=== PATIENT | female | born 1980 | race Caucasian/White ===

== ENCOUNTER 2020-01-31 16:05 | Inpatient (IN) | payer BC, MEDICAID ==
[2020-01-31] MEDS ORDERED: LORazepam 1 MG TAB PO STA (16:40)
[2020-01-31 17:43] LABS: Appearance,Urine Clear (Clear); Bilirubin,Urine Negative (Negative); Blood,Urine Negative (Negative); Color,Urine Yellow; Glucose,Urine (UA) Negative (Negative); Ketones,Urine Negative (Negative); Leukocyte Esterase,Urine Negative (Negative); Nitrite,Urine Negative (Negative); Protein,Urine Negative (Negative); Urobilinogen,Urine <2.0 mg/dL (<2.0)
--- NOTE | 2020-01-31 18:18 | ED ---
Psych HPI - General Source: patient Mode of arrival: ambulatory <Iman Arroyo - Last Filed: 02/01/20 10:08> <Margie Coffey - Last Filed: 02/01/20 12:33> - General Chief Complaint: Psychiatric Symptoms Stated Complaint: Anxiety Time Seen by Provider: 01/31/20 16:25 - History of Present Illness Initial Comments: 39yo female presenting to the ER today for cc of voices in her head. states she has history of this in the past. states began when she was deotoxing from alcohol initially but did not go away. at times she has ringing in her ears but currentyl she hears singing in her ear that is not her voice. Patient states it is driving her crazy and at time she feels suicidal secondary to the voices. Denies homicidal ideations. Denies headaches, visual changes, nausea, vomiting, abdominal or chest pain. Patient staets she has not used alcohol in over a month. Patient tearful but very cooperative during history taking. (Iman Arroyo) - Related Data Home Medications Medication Instructions Recorded Confirmed Multivitamins, Thera [Multivitamin 1 tab PO DAILY 01/31/20 01/31/20 (formulary)] Sertraline HCl [Zoloft] 50 mg PO DAILY 01/31/20 01/31/20 Vitamin C/Biotin [Hair, Skin and 1 tab PO DAILY 01/31/20 01/31/20 Nails] traZODone HCL [Desyrel] 50 mg PO HS 01/31/20 01/31/20 Allergies Allergy/AdvReac Type Severity Reaction Status Date / Time No Known Allergies Allergy Verified 01/31/20 22:13 Review of Systems ROS Other: All systems not noted in ROS Statement are negative. <Iman Arroyo - Last Filed: 02/01/20 10:08> ROS Other: All systems not noted in ROS Statement are negative. <Margie Coffey - Last Filed: 02/01/20 12:33> ROS Statement: Those systems with pertinent positive or pertinent negative responses have been documented in the HPI. Past Medical History Past Medical History: No Reported History History of Any Multi-Drug Resistant Organisms: None Reported Additional Past Surgical History / Comment(s): neck surgery Past Psychological History: Anxiety, Depression Smoking Status: Current every day smoker Past Alcohol Use History: None Reported Past Drug Use History: None Reported <CruzIman Bond - Last Filed: 02/01/20 10:08> General Exam Limitations: no limitations <CruzIman Bond - Last Filed: 02/01/20 10:08> - General Exam Comments Initial Comments: General: The patient is awake and alert, in no distress Eye: + 3 mm pupils are equal, round and reactive to light, extra-ocular movements are intact. No nystagmus. There is normal conjunctiva bilaterally. No signs of icterus. Ears, nose, mouth and throat: There are moist mucous membranes and no oral lesions. Neck: The neck is supple, there is no tenderness or JVD. Cardiovascular: There is a regular rate and rhythm. No murmur, rub or gallop is appreciated. Respiratory: Lungs are clear to auscultation, respirations are non-labored, breath sounds are equal. No wheezes, stridor, rales, or rhonchi. Gastrointestinal: Soft, non-distended, non-tender abdomen without masses or organomegaly noted. There is no rebound or guarding present. Musculoskeletal: Normal ROM, no tenderness. Strength 5/5. Sensation intact. radial pulses equal bilaterally 2+. Neurological: A&O x 3. CN II-XII intact, There are no obvious motor or sensory deficits. Coordination appears grossly intact. Speech is normal. Skin: Skin is warm and dry and no rashes or lesions are noted. Psychiatric: Cooperative, appropriate mood & affect, normal judgment. (Iman Arroyo) Course Vital Signs 01/31/20 16:10 Temperature 97.8 F Pulse Rate 63 Respiratory 18 Rate Blood Pressure 112/71 O2 Sat by Pulse 98 Oximetry Medical Decision Making <Iman Arroyo - Last Filed: 02/01/20 10:08> - Lab Data Result diagrams: 02/01/20 11:08 02/01/20 11:08 <Margie Coffey - Last Filed: 02/01/20 12:33> - Medical Decision Making Discussed case [facility] Dr. Coffey. Pt medically cleared for EPS evaluatin. Patient agreeable to admission as EPS recommended. (Iman Arroyo) I was available for consultation in the emergency department. The history and physical exam were done by the midlevel provider. I was consulted for this patients care. I reviewed the case with the midlevel provider and based on th eir presentation of the patient, I agree with the assessment, medical decision making and plan of care as documented. Chart was dictated using [employer] dictation software. Attempts were made to correct any dictation errors however some typographical errors may persist. Patient was seen during a national state of emergency due to the Covid-19 pandemic. (Margie Coffey) - Lab Data Lab Results 01/31/20 01/31/20 01/31/20 Range/Units 16:25 16:25 16:28 Urine Color Yellow Urine Appearance Clear (Clear) Urine pH 5.0 (5.0-8.0) Ur Specific [place] 1.010 (1.001-1.035) Urine Protein Negative (Negative) Urine Glucose (UA) Negative (Negative) Urine Ketones Negative (Negative) Urine Blood Negative (Negative) Urine Nitrite Negative (Negative) Urine Bilirubin Negative (Negative) Urine Urobilinogen <2.0 (<2.0) mg/dL Ur Leukocyte Esterase Negative (Negative) Urine HCG, Qual Not Detected (Not Detectd) Urine Opiates Screen Not Detected (NotDetected) Ur Oxycodone Screen Not Detected (NotDetected) Urine Methadone Screen Not Detected (NotDetected) Ur Propoxyphene Screen Not Detected (NotDetected) Ur Barbiturates Screen Not Detected (NotDetected) U Tricyclic Antidepress Not Detected (NotDetected) Ur Phencyclidine Scrn Not Detected (NotDetected) Ur Amphetamines Screen Not Detected (NotDetected) U Methamphetamines Scrn Not Detected (NotDetected) U Benzodiazepines Scrn Not Detected (NotDetected) Urine Cocaine Screen Not Detected (NotDetected) U Marijuana (THC) Screen Not Detected (NotDetected) Disposition Is patient prescribed a controlled substance at d/c from ED?: No Time of Disposition: 10:09 - Out of Hospital Transfer - Req. Specs Out of Hospital Transfer - Requested Specifics: Psychiatric Non-ICU <Iman Arroyo - Last Filed: 02/01/20 10:08> <Margie Coffey - Last Filed: 02/01/20 12:33> Clinical Impression: Depression, Auditory hallucination, Tinnitus Disposition: TRANSFER TO PSYCH HOSP/UNIT Condition: Serious
[2020-01-31] MEDS ORDERED: MAG HYDROX/AL HYDROX/SIMETH 30 ML CUP PO PRN (20:03)
[2020-01-31] MEDS ORDERED: MAGNESIUM HYDROXIDE 2,400 MG/10 ML CUP PO PRN (20:03)
[2020-01-31] MEDS ORDERED: ZIPRASIDONE 20 MG VIAL IM PRN (20:03)
[2020-01-31 20:45] LABS: Amphetamine Screen,Urine Not Detected (NotDetected); Barbiturate Screen,Urine Not Detected (NotDetected); Benzodiazepines Screen,Urine Not Detected (NotDetected); Cocaine Screen,Urine Not Detected (NotDetected); Methadone Screen, Urine Not Detected (NotDetected); Opiate Screen,Urine Not Detected (NotDetected); Oxycodone Screen, Urine Not Detected (NotDetected); Phencyclidine Screen,Urine Not Detected (NotDetected); Tricyclic Antidepressant,Urine Not Detected (NotDetected); Urn Cannabinoid Scrn Not Detected (NotDetected)
[2020-01-31] MEDS: traZODone HCL 50 MG TAB PO PRN (21:53)
[2020-02-01] MEDS ORDERED: INFLUENZA VACCINE (6 MOS+) 60 MCG/0.5 ML SYRINGE IM ONE (09:00)
[2020-02-01] MEDS ORDERED: PNEUMOCOCCAL VACC-PNEUMOVAX 23 25 MCG/0.5 ML VIAL IM ONE (09:00)
[2020-02-01 11:47] LABS: ALT 27 U/L (4-34); AST 32 U/L (14-36); African American GFR (CKD) >90 (>60 ml/min/1.73 sqM); Albumin 4.4 g/dL (3.5-5.0); Alkaline Phosphatase 44 U/L (38-126); Anion Gap 4 mmol/L; Blood Urea Nitrogen 14 mg/dL (7-17); Calcium 9.4 mg/dL (8.4-10.2); Carbon Dioxide 27 mmol/L (22-30); Chloride 107 mmol/L (98-107); Cholesterol 160 mg/dL (<200); Glucose 82 mg/dL (74-99); HDL Cholesterol 68 mg/dL (40-60); LDL Cholesterol,Calculated 83 mg/dL (0-99); Non-African American GFR(CKD) >90 (>60 ml/min/1.73 sqM); Potassium 4.2 mmol/L (3.5-5.1); Sodium 138 mmol/L (137-145); Total Bilirubin 0.5 mg/dL (0.2-1.3); Total Protein 6.7 g/dL (6.3-8.2); Triglycerides 47 mg/dL (<150)
[2020-02-01] MEDS: LORazepam 1 MG TAB PO PRN (11:47)
[2020-02-01] MEDS: ACETAMINOPHEN TAB 325 MG TAB PO PRN (11:47)
[2020-02-01 11:58] LABS: Basophils % (A) 1 %; Eosinophils # (A) 0.2 k/uL (0-0.7); Eosinophils % (A) 4 %; HCT 40.7 % (34.0-46.0); HGB 13.8 gm/dL (11.4-16.0); Lymphocytes # (A) 1.4 k/uL (1.0-4.8); Lymphocytes % (A) 30 %; MCH 32.7 pg (25.0-35.0); MCHC 33.9 g/dL (31.0-37.0); MCV 96.7 fL (80.0-100.0); Mean Platelet Volume 10.6; Monocytes # (A) 0.3 k/uL (0-1.0); Monocytes % (A) 6 %; Neutrophils # (A) 2.6 k/uL (1.3-7.7); Neutrophils % (A) 58 %; Platelet Count 161 k/uL (150-450); RBC 4.21 m/uL (3.80-5.40); WBC 4.5 k/uL (3.8-10.6)
--- NOTE | 2020-02-01 13:57 | P.HP ---
Psychiatric H&P - . H&P Date: 02/01/20 History & Physical: Allergies Allergy/AdvReac Type Severity Reaction Status Date / Time No Known Allergies Allergy Verified 01/31/20 22:13 Vital Signs Temp 98.4 F 02/01/20 07:04 Pulse 83 02/01/20 07:04 Resp 16 02/01/20 07:04 BP 100/56 02/01/20 07:04 Pulse Ox 99 01/31/20 21:17 Intake & Output 01/31/20 02/01/20 02/01/20 18:59 06:59 18:59 Weight 54.431 kg 52.1 kg Laboratory Last Values Urine Color Yellow 01/31/20 16:25 Urine Appearance Clear (Clear) 01/31/20 16:25 Urine pH 5.0 (5.0-8.0) 01/31/20 16:25 Ur Specific [place] 1.010 (1.001-1.035) 01/31/20 16:25 Urine Protein Negative (Negative) 01/31/20 16:25 Urine Glucose (UA) Negative (Negative) 01/31/20 16:25 Urine Ketones Negative (Negative) 01/31/20 16:25 Urine Blood Negative (Negative) 01/31/20 16:25 Urine Nitrite Negative (Negative) 01/31/20 16:25 Urine Bilirubin Negative (Negative) 01/31/20 16:25 Urine Urobilinogen <2.0 mg/dL (<2.0) 01/31/20 16:25 Ur Leukocyte Esterase Negative (Negative) 01/31/20 16:25 Urine HCG, Qual Not Detected (Not Detectd) 01/31/20 16:28 Urine Opiates Screen Not Detected (NotDetected) 01/31/20 16:25 Ur Oxycodone Screen Not Detected (NotDetected) 01/31/20 16:25 Urine Methadone Screen Not Detected (NotDetected) 01/31/20 16:25 Ur Propoxyphene Screen Not Detected (NotDetected) 01/31/20 16:25 Ur Barbiturates Screen Not Detected (NotDetected) 01/31/20 16:25 U Tricyclic Antidepress Not Detected (NotDetected) 01/31/20 16:25 Ur Phencyclidine Scrn Not Detected (NotDetected) 01/31/20 16:25 Ur Amphetamines Screen Not Detected (NotDetected) 01/31/20 16:25 U Methamphetamines Scrn Not Detected (NotDetected) 01/31/20 16:25 U Benzodiazepines Scrn Not Detected (NotDetected) 01/31/20 16:25 Urine Cocaine Screen Not Detected (NotDetected) 01/31/20 16:25 U Marijuana (THC) Screen Not Detected (NotDetected) 01/31/20 16:25 02/01/20 08:39 39yo female presenting to the ER today for cc of voices in her head. She hears lyrics and her head constantly and it disrupts her life. She states she has history of this in the past. These lyrics began when she was detoxing from alcohol initially but did not go away. at times she has ringing in her ears but currently she hears singing in her ear that is not her voice. Patient states it is driving her crazy, she feels they are taking over her life and at times she feels suicidal secondary to the voices. The singing even keeps her from being able to sleep. The patient has been going to counseling but the voices have not gotten better and negate the benefit of counseling. Denies homicidal ideations. Denies headaches, visual changes, nausea, vomiting, abdominal or chest pain. The voices are voices of family members and they tell her that she is doing everything wrong. She was recently prescribed Seroquel in the voices told her that she shouldn't take it that it was just a sugar pill and that her doctor was messing with her. She can't go to AA meetings to deal with her alcohol because of voices are chattering away. She is convinced that there are actual people who are doing this to her and not just her own brain doing it. Past psychiatric history: She says she had a similar bout a few years ago. 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 She believes that the voices have been there for a long time and that she drinks to cover them up. She has found Zoloft at 50 mg to be helpful in calming herself down then she takes trazodone 50 and hydroxyzine at night for sleep(which I don't think she will need if we give her Seroquel) Medical problems: None reported Review of systems: No acute problems Substance use: Smokes cigarettes every day no current problems with alcohol or drugs. She has been to rehab for alcohol and has been sober since 12/10/2019. Prior to that she spent 20 years drinking all day every day at least a fifth every day. Social history: The patient's parents broke up when she was very young they're both still alive and both formed new families almost immediately the patient is fairly positive about her stepfather's and stepmother she has 3/2 siblings from mom and 2 half siblings from dad. The patient herself is had 4 children all girls. The second child young shortly after due to the complications of an infection she has a 19-year-old daughter is 16-year-old daughter and 8-year-old daughter. She and her were in 2001 for a period of time and then for some time and then got again she can't remember exactly when. She believes that her hates her and can't explain why he has stayed with her all these years. She says as far she knows she was a full-term baby but had to be kept in to the hospital for a while she was able to finish high school has no experience and no legal issues she and her and children live together in a house with a dog a bunny hermit crabs and goldfish she has no hobbies and no friends and no worship support system because of the alcohol Mental status exam: Patient was able to sleep well last night here in the hospital. She looks very anxious decreased eye contact restless. She says she would like to put on some weight. She could remember 3 of 3 objects after 5 minutes. She could remember the presidents back to the elder [place] decent memory and general information she could name for the collegefeed but had no idea where they were. She could subtract 7 from 93. She could not think of any similarity between cats and snakes and it seemed that the voices are distracting her eventually she came up with their tails and the color her eyes is similar. She could spell world backward. Trying to abstract the grass is greener on the other side, she is a little concrete saying fix your own grass. However she was able to remember carnivore and herbivore and reason out that omnivore must mean both. She feels hopeless and worthless and cannot contract for safety. Diagnosis: Schizophrenia undifferentiated Plan continue the Zoloft as she has found some benefit but keep the dose low so does not aggravate the voices then try Seroquel 100 tonight 100 tomorrow and then 300 see if we get her some relief from the voices. She also need counseling in regards to her tendency to make sense out of life by eating herself and reviewing all of her family. 02/01/20 13:47
[2020-02-01 18:48] LABS: Hemoglobin A1C 4.9 % (4.0-6.0)
[2020-02-01] MEDS: traZODone HCL 50 MG TAB PO PRN (20:46)
[2020-02-01] MEDS ORDERED: QUEtiapine 100 MG TAB PO SCH (21:00)
--- NOTE | 2020-02-01 21:01 | P.CONS ---
History of Present Illness - History of Present Illness This is a pleasant 39 years old female with no significant past medical history. Her previous psych history of anxiety and depression. She cigarette smoker. Patient was admitted to the psych unit for schizophrenia. Medical consult was been requested for routine medical management. Patient denies any specific complaints, no chest pain or dyspnea, no change in urine or bowel habits. No fever. Labs unremarkable including CBC, BMP, TSH, lipid panel, urinalysis and urine itzel g screen I offered serum test and patient did declined, risks and benefits are explained. Review of Systems CONSTITUTIONAL: No fever, no malaise, no fatigue. HEENT: No recent visual problems or hearing problems. Denied any sore throat. CARDIOVASCULAR: No orthopnea, PND, no palpitations, no syncope. PULMONARY: No shortness of breath, no cough, no hemoptysis. GASTROINTESTINAL: No diarrhea, no nausea, no vomiting, no abdominal pain. Normoactive bowel sounds. NEUROLOGICAL: No headaches, no weakness, no numbness. HEMATOLOGICAL: Denies any bleeding or petechiae. GENITOURINARY: Denies any burning micturition, frequency, or urgency. MUSCULOSKELETAL/RHEUMATOLOGICAL: Denies any joint pain, swelling, or any muscle pain. ENDOCRINE: Denies any polyuria or polydipsia. Past Medical History Past Medical History: No Reported History History of Any Multi-Drug Resistant Organisms: None Reported Additional Past Surgical History / Comment(s): neck surgery Past Psychological History: Anxiety, Depression Smoking Status: Current every day smoker Past Alcohol Use History: None Reported Past Drug Use History: None Reported Medications and Allergies Home Medications Medication Instructions Recorded Confirmed Type Multivitamins, Thera [Multivitamin 1 tab PO DAILY 01/31/20 01/31/20 History (formulary)] Sertraline HCl [Zoloft] 50 mg PO DAILY 01/31/20 01/31/20 History Vitamin C/Biotin [Hair, Skin and 1 tab PO DAILY 01/31/20 01/31/20 History Nails] traZODone HCL [Desyrel] 50 mg PO HS 01/31/20 01/31/20 History Allergies Allergy/AdvReac Type Severity Reaction Status Date / Time No Known Allergies Allergy Verified 01/31/20 22:13 Physical Exam Vitals: Vital Signs Temp Pulse Pulse Resp BP BP Pulse Ox 02/01/20 07:04 98.4 F 83 16 100/56 01/31/20 21:17 97.4 F L 74 18 110/66 99 01/31/20 16:10 97.8 F 63 18 112/71 98 Intake and Output 01/31/20 02/01/20 02/01/20 22:59 06:59 14:59 Other: Weight 52.1 kg 51.9 kg GENERAL: The patient is alert and oriented x3, not in any acute distress. Well developed, well nourished. HEENT: Pupils are round and equally reacting to light. EOMI. No scleral icterus. No conjunctival pallor. Normocephalic, atraumatic. No pharyngeal erythema. No thyromegaly. CARDIOVASCULAR: S1 and S2 present. No murmurs, rubs, or gallops. PULMONARY: Chest is clear to auscultation, no wheezing or crackles. ABDOMEN: Soft, nontender, nondistended, normoactive bowel sounds. No palpable organomegaly. MUSCULOSKELETAL: No joint swelling or deformity. EXTREMITIES: No cyanosis, clubbing, or pedal edema. NEUROLOGICAL: Gross neurological examination did not reveal any focal deficits. SKIN: No rashes. No petechiae Results CBC & Chem 7: 02/01/20 11:08 02/01/20 11:08 Labs: Abnormal Lab Results - Last 24 Hours (Table) 02/01/20 Range/Units 11:08 HDL Cholesterol 68 H (40-60) mg/dL Assessment and Plan Assessment: -Schizophrenia: Management as per primary psych team -Cigarette smoker. Patient is counseled, she agrees to quit and she does not want nicotine patch DVT prophylaxis a conical lonely and she is low risk GI prophylaxis. No lid Recommend patient follow up with her primary care doctor within 1 week, patient was instructed with the same Thank you for consulting us, we will see the patient on as needed ASIS. Please feel free to contact us for any further question or clarification
[2020-02-02] MEDS: SERTRALINE 50 MG TAB PO SCH (08:43)
--- NOTE | 2020-02-02 11:21 | P.PN ---
Progress Note - Text Progress Note Date: 02/02/20 Interval History: Patient was seen in her bedroom and was directable and agreeable to speak with financial writer in the office. Patient expresses that she "should not be here." She reports that she wants to be discharged as soon as possible. She was reminded that she is a voluntary admit and may file a 72 hour notice for discharge. She continues to endorse auditory hallucinations which she describes as "voices in the tune of music"that tell her mean things such as "you're not a good mother." She reports that these have been going on for the last few months prior to her going to rehab for alcohol use. Despite being started on Seroquel, patient reports no relief of her psychosis. In regards to depression, at this time patient denies any suicidal or homicidal ideations, intent or plan. She denies any visual hallucinations. She has been noted to make some paranoid statements towards staff. Patient denies any side effects from the medications and has been compliant with meds. Mental Status Exam: General Appearance: Patient appears to be stated age, is alert, directable, well-groomed, but is uncooperative. Behavior: Patient became tearful during the interview, psychomotor activity is elevated, patient terminated the interview early. Speech: Patient's speech is fluent and nonpressured. Mood/Affect: Mood is anxious and afraid. Affect is mood congruent and tearful. Suicidality/Homicidality: Patient denies having any suicidal or homicidal ideation intent or plan. Perceptions: Patient denies any visual hallucinations. She does endorse auditory hallucinations. Though content/process: There is no evidence of any delusional thought content and thought process is linear and goal-directed. Memory and concentration: AOX3, grossly intact for the purposes of this session Judgment and insight: Poor Assessment Schizophrenia Alcohol use Plan: -Patient continues to meet criteria for inpatient psychiatric admission for symptom stabilization and safety. Patient has signed adult voluntary form and medication consent and was placed in patient's chart. Patient has filed a 72 hour notice for discharge. -Will try to obtain more history and collateral information to further explore the patient's symptoms. -Medications: We will increase Seroquel to 200 mg by mouth daily at bedtime to address psychosis Continue Zoloft 50 mg by mouth daily for depression -When necessary Ativan and Geodon for agitation/aggression. -SW on board for discharge planning. Encouraged the patient to participate in milieu.
[2020-02-02] MEDS: ACETAMINOPHEN TAB 325 MG TAB PO PRN (11:55)
[2020-02-02] MEDS: LORazepam 1 MG TAB PO PRN (11:55)
[2020-02-02] MEDS ORDERED: QUEtiapine 200 MG TAB PO SCH (21:00)
[2020-02-02] MEDS ORDERED: QUEtiapine 50 MG TAB PO SCH (21:00)
[2020-02-03 06:42] VITALS: RESP 16
[2020-02-03] MEDS: SERTRALINE 50 MG TAB PO SCH (08:31)
[2020-02-03] MEDS ORDERED: hydrOXYzine pamoate 25 MG CAP PO PRN (11:21)
--- NOTE | 2020-02-03 11:21 | P.PN ---
Progress Note - Text Progress Note Date: 02/03/20 Interval History: Patient was seen wandering the hallways and was directable and agreeable to speak with staff writer in the office. Patient continues to express strong desire for discharge. She continues to express that she "does not belong here." In regards to her mood, she is stating that being admitted is causing her to feel depressed. At this time patient denies any suicidal or homicidal ideations, intent or plan. She continues to endorse auditory hallucinations but denies any paranoia or visual hallucinations. She describes the nature of these auditory hallucinations to be persecutory and demeaning in nature but refused to elaborate as she was upset that she was not being discharged today. She does report that they are slightly better. Patient denies any side effects from the medications and has been compliant with meds. Mental Status Exam: General Appearance: Patient appears to be stated age is alert, directable, and but continues to be somewhat uncooperative. Behavior: Patient became tearful during the interview, and then terminated the interview early. Speech: Patient's speech is fluent and nonpressured. Mood/Affect: Mood is improving mildly, but continues to be anxious and upset, affect is congruent and tearful. Suicidality/Homicidality: Patient denies having any suicidal or homicidal ideation intent or plan. Perceptions: Patient denies any visual hallucinations but continues to endorse auditory hallucinations. Though content/process: There is no evidence of any delusional thought content and thought process is linear and goal-directed. Memory and concentration: AOX3, grossly intact for the purposes of this session Judgment and insight: Improving mildly Assessment Schizophrenia Alcohol use Plan: -Patient continues to meet criteria for inpatient psychiatric admission for symptom stabilization and safety. Patient has signed adult voluntary form and medication consent and was placed in patient's chart. -The treatment team will try and pursue collateral information and request a release of information for the patient's family. -Patient filed a 72 hour notice on 02/02/2020 -Medications: Seroquel 300 mg by mouth at bedtime for psychosis Sertraline 75 mg daily for depression/anxiety We will place Vistaril 25 mg 3 times a day when necessary for management of anxiety as patient does not want to take Ativan due to history of addiction. -When necessary Ativan and Geodon for agitation/aggression. -SW on board for discharge planning. Encouraged the patient to participate in milieu. -Anticipate discharge in 1-2 days.
[2020-02-03 16:15] VITALS: BMI 19.0
[2020-02-03] MEDS: ACETAMINOPHEN TAB 325 MG TAB PO PRN (16:54)
[2020-02-03] MEDS ORDERED: QUEtiapine 100 MG TAB PO SCH (21:00)
[2020-02-04] MEDS: SERTRALINE 25 MG TAB PO SCH (08:26)
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
[2020-02-04] MEDS: ACETAMINOPHEN TAB 325 MG TAB PO PRN (16:17)
[2020-02-04] MEDS ORDERED: QUEtiapine 400 MG TAB PO SCH (21:00)
[2020-02-05 05:45] VITALS: BP 109/70; PULSE 88; TEMP 98.1
[2020-02-05] MEDS: SERTRALINE 25 MG TAB PO SCH (09:14)
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
== END 2020-02-05 10:09 | disposition home or self-care (01) | DRG 885 ==
LOC: EC 16:05 → 3MHU 19:45
PROVIDERS: ADMIT Psychiatry & Neurology Psychiatry; ATTEND Psychiatry & Neurology Psychiatry
DX: F20.9 Schizophrenia, unspecified (principal); Z71.6 Tobacco abuse counseling; F17.210 Nicotine dependence, cigarettes, uncomplicated; F10.10 Alcohol abuse, uncomplicated; F32.9 Major depressive disorder, single episode, unspecified; F41.9 Anxiety disorder, unspecified; H93.19 Tinnitus, unspecified ear; Z79.899 Other long term (current) drug therapy
CPT/HCPCS: 80053; 80061; 80306; 81003; 81025; 82075; 83036; 84443; 85025; 90732; 99285

== ENCOUNTER → 2020-05-05 | Outpatient (CLI) | payer BC ==
--- NOTE | 2020-05-05 15:07 | MM ---
Reason for exam: screening (asymptomatic). Baseline mammogram. History: Family history of breast cancer in maternal grandmother at age 50 and breast cancer in maternal aunt at age 40. Physical Findings: Nurse did not find any significant physical abnormalities on exam. MG Screening Mammo w CAD Bilateral CC and MLO view(s) were taken. The breast tissue is heterogeneously dense. This may lower the sensitivity of mammography. A couple asymmetric densities lateral left CC view may represent superimposition shadow but further evaluation in recommended. No suspicious calcifications or other discrete abnormality. These results were verbally communicated with the patient and result sheet given to the patient on 05/05/20. ASSESSMENT: Incomplete: need additional imaging evaluation, BI-RAD 0 RECOMMENDATION: Special view mammogram of the left breast.
--- NOTE | 2020-05-05 15:09 | MM ---
Reason for exam: additional evaluation requested from abnormal screening. History: Family history of breast cancer in maternal grandmother at age 50 and breast cancer in maternal aunt at age 40. Physical Findings: Breast exam preformed at baseline screening. MG Work Up Mamm w CAD LT Spot compression CC, ML, and CCRM view(s) were taken of the left breast. The breast tissue is heterogeneously dense. This may lower the sensitivity of mammography. The asymmetric densities do not appear to persist on the CC rolled view but incompletely disperse on spot CC. 6 month follow up mammogram recommended. ASSESSMENT: Probably benign, BI-RAD 3 RECOMMENDATION: Follow-up diagnostic mammogram of the left breast in 6 months.
== END | disposition home or self-care (01) ==
LOC: RADMAMWWP 13:19
PROVIDERS: ATTEND Obstetrics & Gynecology
DX: Z12.31 Encounter for screening mammogram for malignant neoplasm of breast (principal); R92.8 Other abnormal and inconclusive findings on diagnostic imaging of breast
CPT/HCPCS: 77065; 77067

== ENCOUNTER 2022-04-05 16:45 | Emergency (ER) | payer BC ==
[2022-04-05 17:33] VITALS: TEMP 97.6
[2022-04-05] MEDS ORDERED: SODIUM CHLORIDE 0.9% 1,000 ML with THIAMINE 100 MG, FOLIC ACID 1 MG IV ONE ×3 (19:39)
--- NOTE | 2022-04-05 19:44 | ED ---
Alcohol HPI - General Chief Complaint: Alcohol Stated Complaint: Mental Health Time Seen by Provider: 04/05/22 19:33 Source: patient, family, RN notes reviewed Mode of arrival: ambulatory Limitations: no limitations - History of Present Illness Initial Comments: This is a 41-year-old female brought to the ER by her alcohol intoxication. Patient really drinking 2 pints per the . He states he got home from work and his daughter was stating that she was acting strange and talking "crazy." She does admit to alcohol use. She denies any illicit drug abuse. Patient states she might have fell and hit her head. Notes that the patient herself is a very poor historian given the level of suspected intoxication. Review of systems are limited patient due to patient condition - Related Data Home Medications Medication Instructions Recorded Confirmed Multivitamins, Thera [Multivitamin 1 tab PO DAILY 01/31/20 01/31/20 (formulary)] Vitamin C/Biotin [Hair, Skin and 1 tab PO DAILY 01/31/20 01/31/20 Nails Chew] Previous Rx's Medication Instructions Recorded QUEtiapine [SEROquel] 400 mg PO HS 30 Days tab 02/05/20 Sertraline [Zoloft] 75 mg PO DAILY 30 Days tab 02/05/20 Allergies Allergy/AdvReac Type Severity Reaction Status Date / Time No Known Allergies Allergy Verified 04/05/22 17:33 Review of Systems ROS Statement: Those systems with pertinent positive or pertinent negative responses have been documented in the HPI. ROS Other: All systems not noted in ROS Statement are negative. Past Medical History Past Medical History: No Reported History History of Any Multi-Drug Resistant Organisms: None Reported Additional Past Surgical History / Comment(s): neck surgery Past Psychological History: Anxiety, Depression Smoking Status: Vaper Past Alcohol Use History: Daily, Heavy Past Drug Use History: None Reported General Exam - General Exam Comments Initial Comments: Vital signs stable, patient afebrile. Patient does not appear to be systemically ill. Patient does appear to be intoxicated. Patient is slurring her speech. Patient is alert and oriented 2. She is disoriented to time and possibly situation.. Limitations: altered mental status General appearance: alert, in no apparent distress Head exam: Present: atraumatic, normocephalic, normal inspection Eye exam: Present: normal appearance, PERRL, EOMI. Absent: scleral icterus, conjunctival injection, periorbital swelling ENT exam: Present: normal exam, normal oropharynx, mucous membranes moist, TM's normal bilaterally, normal external ear exam. Absent: mucous membranes dry Neck exam: Present: normal inspection, full ROM. Absent: tenderness, meningismus, lymphadenopathy Respiratory exam: Present: normal lung sounds bilaterally. Absent: respiratory distress, wheezes, rales, rhonchi, stridor Cardiovascular Exam: Present: regular rate, normal rhythm, normal heart sounds. Absent: systolic murmur, diastolic murmur, rubs, gallop, clicks GI/Abdominal exam: Present: soft, normal bowel sounds. Absent: distended, tenderness, guarding, rebound, rigid Extremities exam: Present: normal inspection, full ROM, normal capillary refill. Absent: tenderness, pedal edema, joint swelling, calf tenderness Back exam: Present: normal inspection Neurological exam: Present: alert, oriented X3, CN II-XII intact Psychiatric exam: Present: normal affect, normal mood Skin exam: Present: warm, dry, intact, normal color. Absent: rash Course Vital Signs 04/05/22 04/05/22 17:27 22:26 Temperature 97.6 F Pulse Rate 96 105 H Respiratory 20 18 Rate Blood Pressure 96/63 106/55 O2 Sat by Pulse 97 96 Oximetry - Reevaluation(s) Reevaluation #1: 04/05/22 23:50 Medical record is reviewed Symptoms are improved here in the emergency department, patient resting comfortably Patient is informed of results and questions answered Patient in no distress Medical Decision Making - Medical Decision Making Patient presents with suspected alcohol intoxication. Other illicit substances or pathology may be present. Patient states Schmieder, hit her head. However there is no overt evidence of head trauma. We'll obtain a computed tomography scan. Toxicology. Differential would include alcohol or illicit substance intoxication, electrolyte disturbance, metabolic encephalopathy, Wernicke's encephalopathy. Closed head injury. Note that the patient previously has been seen here for psychiatric reasons to include psychosis and hallucinations. Patient is on quetiapine. Did have a long discussion with the patient's who agrees to take the patient home in stable with her until she is sober. We discussed getting into a rehab facility such as [facility]. Of course it patient needs to take initiative on her own. Patient released in stable condition with her . The case was discussed in detail with ED attending physician. Presentation, findings, treatment plan discussed in detail. Drake Coffey - Lab Data Result diagrams: 04/05/22 19:46 04/05/22 19:46 Lab Results 04/05/22 04/05/22 04/05/22 Range/Units 19:46 19:46 19:46 WBC 8.1 (3.8-10.6) k/uL RBC 4.55 (3.80-5.40) m/uL Hgb 14.7 (11.4-16.0) gm/dL Hct 42.6 (34.0-46.0) % MCV 93.6 (80.0-100.0) fL MCH 32.3 (25.0-35.0) pg MCHC 34.5 (31.0-37.0) g/dL RDW 12.3 (11.5-15.5) % Plt Count 203 (150-450) k/uL MPV 9.6 Neutrophils % 74 % Lymphocytes % 20 % Monocytes % 3 % Eosinophils % 1 % Basophils % 1 % Neutrophils # 6.0 (1.3-7.7) k/uL Lymphocytes # 1.6 (1.0-4.8) k/uL Monocytes # 0.3 (0-1.0) k/uL Eosinophils # 0.1 (0-0.7) k/uL Basophils # 0.1 (0-0.2) k/uL PT 9.9 (9.0-12.0) sec INR 0.9 (<1.2) Sodium (137-145) mmol/L Potassium (3.5-5.1) mmol/L Chloride (98-107) mmol/L Carbon Dioxide (22-30) mmol/L Anion Gap mmol/L BUN (7-17) mg/dL Creatinine (0.52-1.04) mg/dL Est GFR (CKD-EPI)AfAm (>60 ml/min/1.73 sqM) Est GFR (CKD-EPI)NonAf (>60 ml/min/1.73 sqM) Glucose (74-99) mg/dL Calcium (8.4-10.2) mg/dL Phosphorus (2.5-4.5) mg/dL Magnesium (1.6-2.3) mg/dL Total Bilirubin (0.2-1.3) mg/dL AST (14-36) U/L ALT (4-34) U/L Alkaline Phosphatase (38-126) U/L Ammonia (<30) umol/L Total Protein (6.3-8.2) g/dL Albumin (3.5-5.0) g/dL HCG, Qual Urine Color Yellow Urine Appearance Cloudy H (Clear) Urine pH 5.5 (5.0-8.0) Ur Specific [place] 1.015 (1.001-1.035) Urine Protein 1+ H (Negative) Urine Glucose (UA) Negative (Negative) Urine Ketones Negative (Negative) Urine Blood Large H (Negative) Urine Nitrite Negative (Negative) Urine Bilirubin Negative (Negative) Urine Urobilinogen <2.0 (<2.0) mg/dL Ur Leukocyte Esterase Negative (Negative) Urine RBC 37 H (0-5) /hpf Urine WBC 4 (0-5) /hpf Ur Squamous Epith Cells 5 H (0-4) /hpf Calcium Oxalate Crystal Occasional H (None) /hpf Urine Bacteria Few H (None) /hpf Hyaline Casts 12 H (0-2) /lpf Urine Mucus Few H (None) /hpf Salicylates mg/dL Urine Opiates Screen Not Detected (NotDetected) Ur Oxycodone Screen Not Detected (NotDetected) Urine Methadone Screen Not Detected (NotDetected) Ur Propoxyphene Screen Not Detected (NotDetected) Acetaminophen ug/mL Ur Barbiturates Screen Not Detected (NotDetected) U Tricyclic Antidepress Detected H (NotDetected) Ur Phencyclidine Scrn Not Detected (NotDetected) Ur Amphetamines Screen Not Detected (NotDetected) U Methamphetamines Scrn Not Detected (NotDetected) U Benzodiazepines Scrn Not Detected (NotDetected) Urine Cocaine Screen Not Detected (NotDetected) U Marijuana (THC) Screen Not Detected (NotDetected) Serum Alcohol mg/dL 04/05/22 04/05/22 04/05/22 Range/Units 19:46 19:46 19:46 WBC (3.8-10.6) k/uL RBC (3.80-5.40) m/uL Hgb (11.4-16.0) gm/dL Hct (34.0-46.0) % MCV (80.0-100.0) fL MCH (25.0-35.0) pg MCHC (31.0-37.0) g/dL RDW (11.5-15.5) % Plt Count (150-450) k/uL MPV Neutrophils % % Lymphocytes % % Monocytes % % Eosinophils % % Basophils % % Neutrophils # (1.3-7.7) k/uL Lymphocytes # (1.0-4.8) k/uL Monocytes # (0-1.0) k/uL Eosinophils # (0-0.7) k/uL Basophils # (0-0.2) k/uL PT (9.0-12.0) sec INR (<1.2) Sodium 145 (137-145) mmol/L Potassium 3.8 (3.5-5.1) mmol/L Chloride 110 H (98-107) mmol/L Carbon Dioxide 16 L (22-30) mmol/L Anion Gap 19 mmol/L BUN 12 (7-17) mg/dL Creatinine 0.88 (0.52-1.04) mg/dL Est GFR (CKD-EPI)AfAm >90 (>60 ml/min/1.73 sqM) Est GFR (CKD-EPI)NonAf 82 (>60 ml/min/1.73 sqM) Glucose 144 H (74-99) mg/dL Calcium 8.7 (8.4-10.2) mg/dL Phosphorus 4.8 H (2.5-4.5) mg/dL Magnesium 1.6 (1.6-2.3) mg/dL Total Bilirubin 0.2 (0.2-1.3) mg/dL AST 38 H (14-36) U/L ALT 21 (4-34) U/L Alkaline Phosphatase 74 (38-126) U/L Ammonia <9 (<30) umol/L Total Protein 7.7 (6.3-8.2) g/dL Albumin 5.0 (3.5-5.0) g/dL HCG, Qual Not Detected Urine Color Urine Appearance (Clear) Urine pH (5.0-8.0) Ur Specific [place] (1.001-1.035) Urine Protein (Negative) Urine Glucose (UA) (Negative) Urine Ketones (Negative) Urine Blood (Negative) Urine Nitrite (Negative) Urine Bilirubin (Negative) Urine Urobilinogen (<2.0) mg/dL Ur Leukocyte Esterase (Negative) Urine RBC (0-5) /hpf Urine WBC (0-5) /hpf Ur Squamous Epith Cells (0-4) /hpf Calcium Oxalate Crystal (None) /hpf Urine Bacteria (None) /hpf Hyaline Casts (0-2) /lpf Urine Mucus (None) /hpf Salicylates <1.0 mg/dL Urine Opiates Screen (NotDetected) Ur Oxycodone Screen (NotDetected) Urine Methadone Screen (NotDetected) Ur Propoxyphene Screen (NotDetected) Acetaminophen <10.0 ug/mL Ur Barbiturates Screen (NotDetected) U Tricyclic Antidepress (NotDetected) Ur Phencyclidine Scrn (NotDetected) Ur Amphetamines Screen (NotDetected) U Methamphetamines Scrn (NotDetected) U Benzodiazepines Scrn (NotDetected) Urine Cocaine Screen (NotDetected) U Marijuana (THC) Screen (NotDetected) Serum Alcohol 292 H* mg/dL Disposition Clinical Impression: Alcohol intoxication Disposition: HOME SELF-CARE Instructions (If sedation given, give patient instructions): Alcohol Intoxication (ED) Additional Instructions: [facility] in [place], [place] Address: [address] [place] [address], [place] [address] Hours: Opens 8:30AM Follow-up with your regular physician as directed. Return to the ER immediately if any symptoms worsen, new symptoms arise, or any other problems develop. Is patient prescribed a controlled substance at d/c from ED?: No Referrals: Latricia Sandhu MD [Primary Care Provider] - 1-2 days Time of Disposition: 23:52
[2022-04-05 20:16] LABS: Basophils # (A) 0.1 k/uL (0-0.2); Basophils % (A) 1 %; Eosinophils # (A) 0.1 k/uL (0-0.7); Eosinophils % (A) 1 %; HCT 42.6 % (34.0-46.0); HGB 14.7 gm/dL (11.4-16.0); Lymphocytes # (A) 1.6 k/uL (1.0-4.8); Lymphocytes % (A) 20 %; MCH 32.3 pg (25.0-35.0); MCHC 34.5 g/dL (31.0-37.0); MCV 93.6 fL (80.0-100.0); Mean Platelet Volume 9.6; Monocytes # (A) 0.3 k/uL (0-1.0); Monocytes % (A) 3 %; Neutrophils % (A) 74 %; Platelet Count 203 k/uL (150-450); RBC 4.55 m/uL (3.80-5.40); RDW 12.3 % (11.5-15.5); WBC 8.1 k/uL (3.8-10.6)
[2022-04-05 20:26] LABS: INR 0.9 (<1.2)
[2022-04-05 20:27] LABS: Prothrombin Time 9.9 sec (9.0-12.0)
[2022-04-05 20:29] LABS: Acetaminophen <10.0 ug/mL; Magnesium 1.6 mg/dL (1.6-2.3); Phosphorus 4.8 mg/dL (2.5-4.5); Salicylate <1.0 mg/dL
[2022-04-05 20:35] LABS: Alcohol 292 mg/dL
--- NOTE | 2022-04-05 20:47 | CT ---
EXAMINATION TYPE: CT brain wo con CT DLP: 1141.4 mGycm, Automated exposure control for dose reduction was used. DATE OF EXAM: 04/05/2022 8:24 PM COMPARISON: None. CLINICAL INDICATION:Female, 41 years old with history of Altered level of consciousness, alcohol into xication, AMS. intoxication TECHNIQUE: Brain: Axial CT images of the brain were obtained with coronal and sagittal reformats created and rev iewed. Contrast used: None. Oral contrast used: None. FINDINGS: Brain: Extra-axial spaces: No abnormal extra-axial fluid collections. Ventricular system: Within normal limits Cerebral parenchyma: No acute intraparenchymal hemorrhage or mass effect. The masterson-white junction is well differentiated. Cerebellum: Unremarkable. Mass effect: No evidence of midline shift. Intracranial vasculature: unremarkable Soft tissues: Normal. Calvarium/osseous structures: No depressed skull fracture. Paranasal sinuses and mastoid air cells: Moderate scattered paranasal sinus disease. Visualized orbits: Orbital contents are intact. IMPRESSION: 1. No acute intracranial process. 2. Moderate paranasal sinus disease most proximal maxillary sinuses.
[2022-04-05 20:48] LABS: HCG,Qualitative Serum Not Detected
[2022-04-05 21:20] LABS: ALT 21 U/L (4-34); AST 38 U/L (14-36); African American GFR (CKD) >90 (>60 ml/min/1.73 sqM); Alkaline Phosphatase 74 U/L (38-126); Anion Gap 19 mmol/L; Blood Urea Nitrogen 12 mg/dL (7-17); Calcium 8.7 mg/dL (8.4-10.2); Carbon Dioxide 16 mmol/L (22-30); Chloride 110 mmol/L (98-107); Glucose 144 mg/dL (74-99); Non-African American GFR(CKD) 82 (>60 ml/min/1.73 sqM); Potassium 3.8 mmol/L (3.5-5.1); Sodium 145 mmol/L (137-145); Total Bilirubin 0.2 mg/dL (0.2-1.3); Total Protein 7.7 g/dL (6.3-8.2)
[2022-04-05 22:27] VITALS: RESP 18
[2022-04-05 23:17] LABS: Appearance,Urine Cloudy (Clear); Bacteria,Urine Few /hpf; Bilirubin,Urine Negative (Negative); Blood,Urine Large (Negative); Calcium Oxalate Crystals,Urine Occasional /hpf; Color,Urine Yellow; Glucose,Urine (UA) Negative (Negative); Hyaline Casts,Urine 12 /lpf (0-2); Ketones,Urine Negative (Negative); Leukocyte Esterase,Urine Negative (Negative); Mucus,Urine Few /hpf; Nitrite,Urine Negative (Negative); PH, Urine 5.5 (5.0-8.0); Protein,Urine 1+ (Negative); RBC,Urine 37 /hpf (0-5); Specific Gravity,Urine 1.015 (1.001-1.035); Squamous Epithelial Cell,Urine 5 /hpf (0-4); Urobilinogen,Urine <2.0 mg/dL (<2.0); WBC,Urine 4 /hpf (0-5)
[2022-04-05 23:24] LABS: Amphetamine Screen,Urine Not Detected (NotDetected); Benzodiazepines Screen,Urine Not Detected (NotDetected); Cocaine Screen,Urine Not Detected (NotDetected); Opiate Screen,Urine Not Detected (NotDetected); Phencyclidine Screen,Urine Not Detected (NotDetected); Tricyclic Antidepressant,Urine Detected (NotDetected); Urn Cannabinoid Scrn Not Detected (NotDetected)
[2022-04-05 23:25] LABS: Barbiturate Screen,Urine Not Detected (NotDetected); Methadone Screen, Urine Not Detected (NotDetected); Oxycodone Screen, Urine Not Detected (NotDetected)
[2022-04-06 00:34] VITALS: BP 103/57; PULSE 118
== END 2022-04-06 00:40 | disposition home or self-care (01) ==
LOC: EC 16:45
DX: F10.129 Alcohol abuse with intoxication, unspecified (principal); F17.290 Nicotine dependence, other tobacco product, uncomplicated; Y90.8 Blood alcohol level of 240 mg/100 ml or more
CPT/HCPCS: 36415; 80053; 82140; 83735; 84100; 85025; 85610; 81001; 84703; 80306; 80143; 80320; 80179; 70450; 99284; 96365; 96366; J3411

== ENCOUNTER 2022-08-16 08:56 | Observation (INO) | payer BC ==
[2022-08-16] MEDS ORDERED: SODIUM CHLORIDE 0.9% 1,000 ML IV STA ×2 (09:10→11:05)
[2022-08-16] MEDS ORDERED: ADENOSINE 3 MG/ML 2 ML VIAL IVP STA (09:18)
--- NOTE | 2022-08-16 09:44 | XR ---
EXAMINATION TYPE: XR chest 2V DATE OF EXAM: 08/16/2022 9:40 AM COMPARISON: None TECHNIQUE: XR chest 2V Frontal and lateral views of the chest. CLINICAL INDICATION:Female, 41 years old with history of dysrhythmia; FINDINGS: Lungs/Pleura: There is no evidence of pleural effusion, focal consolidation, or pneumothorax. Pulmonary vascularity: Unremarkable. Heart/mediastinum: Cardiomediastinal silhouette is unremarkable. Musculoskeletal: No acute osseous pathology. IMPRESSION: No acute cardiopulmonary disease/process.
[2022-08-16 09:51] LABS: Basophils % (A) 1 %; Eosinophils # (A) 0.2 k/uL (0-0.7); Eosinophils % (A) 6 %; HCT 38.2 % (34.0-46.0); HGB 13.2 gm/dL (11.4-16.0); Lymphocytes % (A) 37 %; MCH 32.6 pg (25.0-35.0); MCHC 34.5 g/dL (31.0-37.0); MCV 94.5 fL (80.0-100.0); Mean Platelet Volume 9.5; Monocytes # (A) 0.2 k/uL (0-1.0); Monocytes % (A) 6 %; Neutrophils # (A) 1.3 k/uL (1.3-7.7); Neutrophils % (A) 47 %; Platelet Count 111 k/uL (150-450); RBC 4.04 m/uL (3.80-5.40); WBC 2.7 k/uL (3.8-10.6)
--- NOTE | 2022-08-16 09:57 | ED ---
Arrhythmia/Palpitations HPI - General Chief Complaint: Cardiac Arrest/CPR Stated Complaint: L arm numbness heart racing Source: patient Mode of arrival: ambulatory Limitations: no limitations - History of Present Illness Initial Comments: 41-year-old female with past medical history of depression who presents to the emergency department reporting rapid heart rate. She states that she was sitting on the computer at home. 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 Began having rapid heart rate with numbness and tingling going down her left arm. She denies any chest pain but admits chest pressure with shortness of breath. No history of similar in the past. Denies previous history of cardiac disease. Denies any weakness in the extremity. No visual changes or headache. She thought she was having an anxiety attack as she stopped taking her Zoloft a couple months ago. The symptoms persisted she came in to the emergency room immediately. No concern for . No other alleviating, precipitating or modifying factors - Related Data Home Medications Medication Instructions Recorded Confirmed No Known Home Medications 08/16/22 08/16/22 Allergies Allergy/AdvReac Type Severity Reaction Status Date / Time No Known Allergies Allergy Verified 08/16/22 11:11 Review of Systems ROS Statement: Those systems with pertinent positive or pertinent negative responses have been documented in the HPI. ROS Other: All systems not noted in ROS Statement are negative. Past Medical History Past Medical History: No Reported History History of Any Multi-Drug Resistant Organisms: None Reported Additional Past Surgical History / Comment(s): neck surgery Past Psychological History: Anxiety, Depression Smoking Status: Vaper Past Alcohol Use History: Daily, Heavy Past Drug Use History: None Reported General Exam Limitations: no limitations Course Vital Signs 08/16/22 08/16/22 08/16/22 08:58 09:03 09:15 Temperature 97.8 F 98.5 F Pulse Rate 185 H 190 H 187 H Respiratory 20 30 H 18 Rate Blood Pressure 131/82 133/87 138/112 O2 Sat by Pulse 100 100 100 Oximetry 08/16/22 08/16/22 08/16/22 09:24 10:03 11:01 Temperature Pulse Rate 101 H 78 66 Respiratory 20 18 18 Rate Blood Pressure 136/99 130/74 120/82 O2 Sat by Pulse 100 100 100 Oximetry EKG Findings - EKG Comments: EKG Findings:: EKG done at 910 demonstrates supraventricular tachycardia with a rate of 186. QRS 89. QTC of 3:15. No acute ST segment elevations. ST depression likely rate dependent. Repeat EKG at 923 demonstrates normal sinus rhythm with a rate of 99. CA interval 142. QRS 78. QTC of 390. No acute ST segment elevations or depressions Medical Decision Making - Medical Decision Making Was pt. sent in by a medical professional or institution (, [facility], [employer], urgent care, hospital, or long-term...) When possible be specific @ -[No] Did you speak to anyone other than the patient for history (EMS, parent, family, police, friend...)? What history was obtained from this source @ -[No] Did you review nursing and triage notes (agree or disagree)? Why? @ -[I reviewed and agree with nursing and triage notes] Were old charts reviewed (outside hosp., previous admission, EMS record, old EKG, old radiological studies, urgent care reports/EKG's, long-term records)? Report findings @ -[No old charts were reviewed] Differential Diagnosis (chest pain, altered mental status, abdominal pain women, abdominal pain men, vaginal bleeding, weakness, fever, dyspnea, syncope, headache, dizziness, GI bleed, back pain, seizure, CVA, palpatations, mental health, musculoskeletal)? @ -[not applicable] EKG interpreted by me (3pts min.). @ -[As above] X-rays interpreted by me (1pt min.). @ -[None done] CT interpreted by me (1pt min.). @ -[None done] U/S interpreted by me (1pt. min.). @ -[None done] What testing was considered but not performed or refused? (CT, X-rays, U/S, labs)? Why? @ -[None] What meds were considered but not given or refused? Why? @ -[None] Did you discuss the management of the patient with other professionals (professionals i.e. [facility]a, [employer], lab, RT, psych nurse, psych social worker, yarn carrier, teacher, fire control officer, rn case mgr)? Give summary @ -[No] Was smoking cessation discussed for >3mins.? @ -[No] Was critical care preformed (if so, how long)? @ -[No] Were there social determinants of health that impacted care today? How? (Homelessness, low income, unemployed, alcoholism, drug addiction, transportation, low edu. Level, literacy, decrease access to med. care, [facility], rehab)? @ -[No] Was there de-escalation of care discussed even if they declined (Discuss DNR or withdrawal of care, Hospice)? DNR status @ -[No] What co-morbidities impacted this encounter? (DM, HTN, Smoking, COPD, CAD, Cancer, CVA, ARF, Chemo, Hep., AIDS, mental health diagnosis, sleep apnea, m orbid obesity)? @ -[None] Was patient admitted / discharged? Hospital course, mention meds given and route, prescriptions, significant lab abnormalities, going to OR and other pertinent info. @ -Upon arrival patient was placed in a trauma 2. She is to continuous pulse ox and cardiac monitoring. IV is established. Laboratory studies were conducted. Twelve-lead demonstrates that the patient is in SVT. We did attempt vagal maneuvers however the patient does not convert. She is given 6 mg of adenosine with conversion. Laboratory studies were conducted and reviewed. Elevation in her liver enzymes. Did speak with the patient and she does admit to drinking a pint of alcohol a day. She usually drinks after work. Has not drank anything yet today however this is typical for her. Patient will be placed on [facility] protocol. Recommended admission for cardiology consultation. She was agreeable to this. Spoke with Dr. Cisneros who agreed to admit the patient Undiagnosed new problem with uncertain prognosis? @ -[No] Drug Therapy requiring intensive monitoring for toxicity (Heparin, Nitro, Insulin, Cardizem)? @ -[No] Were any procedures done? @ -[No] Diagnosis/symptom? @ -[default] Acute, or Chronic, or Acute on Chronic? @ -[default] Uncomplicated (without systemic symptoms) or Complicated (systemic symptoms)? @ -[default] Side effects of treatment? @ -[No] Exacerbation, Progression, or Severe Exacerbation? @ -[No] Poses a threat to life or bodily function? How? (Chest pain, USA, MS, pneumonia, PE, COPD, DKA, ARF, appy, cholecystitis, CVA, Diverticulitis, Homicidal, Suicidal, threat to staff... and all critical care pts) @ -[No] - Lab Data Result diagrams: 08/16/22 09:10 08/16/22 09:10 Lab Results 08/16/22 08/16/22 08/16/22 Range/Units 09:10 09:10 09:10 WBC 2.7 L (3.8-10.6) k/uL RBC 4.04 (3.80-5.40) m/uL Hgb 13.2 (11.4-16.0) gm/dL Hct 38.2 (34.0-46.0) % MCV 94.5 (80.0-100.0) fL MCH 32.6 (25.0-35.0) pg MCHC 34.5 (31.0-37.0) g/dL RDW 13.0 (11.5-15.5) % Plt Count 111 L (150-450) k/uL MPV 9.5 Neutrophils % 47 % Lymphocytes % 37 % Monocytes % 6 % Eosinophils % 6 % Basophils % 1 % Neutrophils # 1.3 (1.3-7.7) k/uL Lymphocytes # 1.0 (1.0-4.8) k/uL Monocytes # 0.2 (0-1.0) k/uL Eosinophils # 0.2 (0-0.7) k/uL Basophils # 0.0 (0-0.2) k/uL PT 9.7 (9.0-12.0) sec INR 0.9 (<1.2) APTT 22.2 (22.0-30.0) sec Sodium 138 (137-145) mmol/L Potassium 3.4 L (3.5-5.1) mmol/L Chloride 99 (98-107) mmol/L Carbon Dioxide 28 (22-30) mmol/L Anion Gap 11 mmol/L BUN 8 (7-17) mg/dL Creatinine 0.67 (0.52-1.04) mg/dL Est GFR (CKD-EPI)AfAm >90 (>60 ml/min/1.73 sqM) Est GFR (CKD-EPI)NonAf >90 (>60 ml/min/1.73 sqM) Glucose 92 (74-99) mg/dL Calcium 9.3 (8.4-10.2) mg/dL Magnesium 1.8 (1.6-2.3) mg/dL Total Bilirubin 0.7 (0.2-1.3) mg/dL AST 636 H (14-36) U/L ALT 265 H (4-34) U/L Alkaline Phosphatase 118 (38-126) U/L Troponin I (0.000-0.034) ng/mL Total Protein 7.3 (6.3-8.2) g/dL Albumin 4.7 (3.5-5.0) g/dL TSH 1.130 (0.465-4.680) mIU/L Urine Color Urine Appearance (Clear) Urine pH (5.0-8.0) Ur Specific [place] (1.001-1.035) Urine Protein (Negative) Urine Glucose (UA) (Negative) Urine Ketones (Negative) Urine Blood (Negative) Urine Nitrite (Negative) Urine Bilirubin (Negative) Urine Urobilinogen (<2.0) mg/dL Ur Leukocyte Esterase (Negative) Urine RBC (0-5) /hpf Urine WBC (0-5) /hpf Ur Squamous Epith Cells (0-4) /hpf Urine Mucus (None) /hpf Urine HCG, Qual (Not Detectd) 08/16/22 08/16/22 08/16/22 Range/Units 09:10 10:03 10:03 WBC (3.8-10.6) k/uL RBC (3.80-5.40) m/uL Hgb (11.4-16.0) gm/dL Hct (34.0-46.0) % MCV (80.0-100.0) fL MCH (25.0-35.0) pg MCHC (31.0-37.0) g/dL RDW (11.5-15.5) % Plt Count (150-450) k/uL MPV Neutrophils % % Lymphocytes % % Monocytes % % Eosinophils % % Basophils % % Neutrophils # (1.3-7.7) k/uL Lymphocytes # (1.0-4.8) k/uL Monocytes # (0-1.0) k/uL Eosinophils # (0-0.7) k/uL Basophils # (0-0.2) k/uL PT (9.0-12.0) sec INR (<1.2) APTT (22.0-30.0) sec Sodium (137-145) mmol/L Potassium (3.5-5.1) mmol/L Chloride (98-107) mmol/L Carbon Dioxide (22-30) mmol/L Anion Gap mmol/L BUN (7-17) mg/dL Creatinine (0.52-1.04) mg/dL Est GFR (CKD-EPI)AfAm (>60 ml/min/1.73 sqM) Est GFR (CKD-EPI)NonAf (>60 ml/min/1.73 sqM) Glucose (74-99) mg/dL Calcium (8.4-10.2) mg/dL Magnesium (1.6-2.3) mg/dL Total Bilirubin (0.2-1.3) mg/dL AST (14-36) U/L ALT (4-34) U/L Alkaline Phosphatase (38-126) U/L Troponin I <0.012 (0.000-0.034) ng/mL Total Protein (6.3-8.2) g/dL Albumin (3.5-5.0) g/dL TSH (0.465-4.680) mIU/L Urine Color Light Yellow Urine Appearance Clear (Clear) Urine pH 7.5 (5.0-8.0) Ur Specific [place] 1.004 (1.001-1.035) Urine Protein Negative (Negative) Urine Glucose (UA) Negative (Negative) Urine Ketones Negative (Negative) Urine Blood Trace H (Negative) Urine Nitrite Negative (Negative) Urine Bilirubin Negative (Negative) Urine Urobilinogen <2.0 (<2.0) mg/dL Ur Leukocyte Esterase Negative (Negative) Urine RBC <1 (0-5) /hpf Urine WBC <1 (0-5) /hpf Ur Squamous Epith Cells 1 (0-4) /hpf Urine Mucus Rare H (None) /hpf Urine HCG, Qual Not Detected (Not Detectd) Disposition Clinical Impression: SVT (supraventricular tachycardia) Disposition: ADMITTED IP TO THIS HOSP Condition: Serious Is patient prescribed a controlled substance at d/c from ED?: No Time of Disposition: 10:54 Decision to Admit Reason: Admit from EC Decision Date: 08/16/22 Decision Time: 10:54
[2022-08-16 10:08] LABS: ALT 265 U/L (4-34); AST 636 U/L (14-36); African American GFR (CKD) >90 (>60 ml/min/1.73 sqM); Albumin 4.7 g/dL (3.5-5.0); Alkaline Phosphatase 118 U/L (38-126); Anion Gap 11 mmol/L; Blood Urea Nitrogen 8 mg/dL (7-17); Calcium 9.3 mg/dL (8.4-10.2); Carbon Dioxide 28 mmol/L (22-30); Chloride 99 mmol/L (98-107); Glucose 92 mg/dL (74-99); Magnesium 1.8 mg/dL (1.6-2.3); Non-African American GFR(CKD) >90 (>60 ml/min/1.73 sqM); Potassium 3.4 mmol/L (3.5-5.1); Sodium 138 mmol/L (137-145); Total Bilirubin 0.7 mg/dL (0.2-1.3); Total Protein 7.3 g/dL (6.3-8.2)
[2022-08-16 10:09] LABS: INR 0.9 (<1.2); Partial Thromboplastin Time 22.2 sec (22.0-30.0); Prothrombin Time 9.7 sec (9.0-12.0)
[2022-08-16 10:29] LABS: Appearance,Urine Clear (Clear); Bilirubin,Urine Negative (Negative); Blood,Urine Trace (Negative); Color,Urine Light Yellow; Glucose,Urine (UA) Negative (Negative); Ketones,Urine Negative (Negative); Leukocyte Esterase,Urine Negative (Negative); Mucus,Urine Rare /hpf; Nitrite,Urine Negative (Negative); PH, Urine 7.5 (5.0-8.0); Protein,Urine Negative (Negative); RBC,Urine <1 /hpf (0-5); Specific Gravity,Urine 1.004 (1.001-1.035); Squamous Epithelial Cell,Urine 1 /hpf (0-4); Urobilinogen,Urine <2.0 mg/dL (<2.0); WBC,Urine <1 /hpf (0-5)
[2022-08-16] MEDS ORDERED: NALOXONE 0.4 MG/ML 1 ML VIAL IV PRN (11:05)
[2022-08-16] MEDS ORDERED: LORazepam 0.5 MG TAB PO PRN (11:08)
[2022-08-16] MEDS ORDERED: LORazepam 1 MG TAB PO PRN ×4 (11:08)
[2022-08-16] MEDS ORDERED: THIAMINE 100 MG/ML 2 ML VIAL IM STA (11:08)
[2022-08-16] MEDS: SODIUM CHLORIDE 0.9% 1,000 ML IV SCH ×2 (11:44→14:31)
[2022-08-17 00:28] VITALS: TEMP 98.1
--- NOTE | 2022-08-17 02:10 | P.HPIM ---
History of Present Illness H&P Date: 08/16/22 Chief Complaint: Tachycardia Patient is a 41-year-old female with a known history of anxiety/depression and daily heavy alcohol use and vaping presents to ER with complaints of heart beating fast. Patient states that she was getting ready to work at home and was sitting at the computer and suddenly she started having rapid heart rate and also felt chest tightness with tingling sensation down the left arm. Patient was about to pass out. Denies any complaints of shortness of breath. No diaphoresis. No headache or dizziness or lightheadedness. No prior history of cardiac disease. Denies any recent illnesses. No leg swelling. No recent travel Patient does have a history of anxiety/depression and was previously on Seroquel and Zoloft. She stopped taking about 6 months ago. Chest x-ray showed no acute cardiopulmonary process/disease EKG showed supraventricular tachycardia. Patient was given a dose of adenosine 6 mg IV push in the ER. Laboratory showed WBC 2.7 hemoglobin 13.2 and platelets 111 Sodium 138 potassium 3.4 chloride 99 bicarb is 28 BUN 18 creatinine 0.67 and magnesium 1.8 AST 636 and ALT 265 Troponin x3 negative Urinalysis negative for infection. TSH level is within normal limits at 1.13 Review of Systems Constitutional: Patient denies any fever or chills . no Generalized weakness. Abdomen: Patient denied any nausea or vomiting or abd. pain Cardiovascular: Patient denies any chest pain or short of breath . + palpitations. Respiratory: patient denied any cough . no sputum production. No shortness of breath Neurologic: Patient denied any numbness or tingling headache. Musculoskeletal: Patient denies any complaints of joint swelling or deformity. Skin: Negative Psychiatric: Negative Endocrine: No heat or cold intolerance. No recent weight gain. Genitourinary: No dysuria or hematuria. All other 14 point ROS negative except the above Past Medical History Past Medical History: Supraventricular Tachycardia (SVT) History of Any Multi-Drug Resistant Organisms: None Reported Past Surgical History: Section Additional Past Surgical History / Comment(s): neck surgery Past Anesthesia/Blood Transfusion Reactions: Unable to Obtain Past Psychological History: Anxiety, Depression Smoking Status: Vaper Past Alcohol Use History: Daily, Heavy Past Drug Use History: None Reported Medications and Allergies Home Medications Medication Instructions Recorded Confirmed Type No Known Home Medications 08/16/22 08/16/22 History Allergies Allergy/AdvReac Type Severity Reaction Status Date / Time No Known Allergies Allergy Verified 08/16/22 11:11 Physical Exam Vitals: Vital Signs Temp Pulse Pulse Resp BP BP Pulse Ox 08/16/22 18:31 98.2 F 91 18 118/79 100 08/16/22 15:51 104 H 117/83 98 08/16/22 14:34 75 08/16/22 14:16 98.6 F 75 16 114/63 100 08/16/22 14:13 98.7 F 88 16 114/63 08/16/22 13:07 66 20 126/44 97 08/16/22 11:39 65 20 113/76 100 08/16/22 11:01 66 18 120/82 100 08/16/22 10:03 78 18 130/74 100 08/16/22 09:24 101 H 20 136/99 100 08/16/22 09:15 98.5 F 187 H 18 138/112 100 08/16/22 09:03 190 H 30 H 133/87 100 08/16/22 08:58 97.8 F 185 H 20 131/82 100 Intake and Output 08/16/22 08/16/22 08/16/22 06:59 14:59 22:59 Intake Total 540 Balance 540 Intake: Oral 540 Other: Weight 63.503 kg PHYSICAL EXAMINATION: Patient is lying in the bed comfortably, no acute distress, awake alert and oriented.. HEENT: Normocephalic. Neck is supple. Pupils reactive. Nostrils clear. Oral cavity is moist. Neck reveals no JVD, carotid bruits, or thyromegaly. CHEST EXAMINATION: Trachea is central. Symmetrical expansion. Lung cruz clear to auscultation and percussion. CARDIAC: Normal S1, S2 with no gallops. No murmurs ABDOMEN: Soft. Bowel sounds present. Nontender. No organomegaly. No abdominal bruits. Extremities: reveal no edema. No clubbing or cyanosis Neurologically awake, alert, oriented x3 with well-coordinated movements. No focal deficits noted Skin: No rash or skin lesions. Psychiatric: Coperative. Nonsuicidal, Musculoskeletal: No joint swelling or deformity. Normal range of motion. Results CBC & Chem 7: 08/16/22 09:10 08/16/22 09:10 Labs: Abnormal Lab Results - Last 24 Hours (Table) 08/16/22 08/16/22 08/16/22 Range/Units 09:10 09:10 10:03 WBC 2.7 L (3.8-10.6) k/uL Plt Count 111 L (150-450) k/uL Potassium 3.4 L (3.5-5.1) mmol/L AST 636 H (14-36) U/L ALT 265 H (4-34) U/L Urine Blood Trace H (Negative) Urine Mucus Rare H (None) /hpf Thrombosis Risk Factor Assmnt - DVT/VTE Prophylaxis DVT/VTE Prophylaxis: Pharmacologic Prophylaxis ordered - Choose All That Apply Each Factor Represents 1 point: Age 41-60 years Other Risk Factors: No Thrombosis Risk Factor Assessment Total Risk Factor Score: 1 Thrombosis Risk Factor Assessment Level: Low Risk Assessment and Plan Assessment: Supraventricular tachycardia on admission status post adenosine 6 mg IV push x1 Daily alcohol abuse Transaminitis Leukopenia Hypokalemia History of anxiety/depression DVT prophylaxis with heparin subcu Plan: Patient will be continued on telemetry monitoring. TSH within normal limits. Serial EKG and troponin x3 negative. Follow-up liver enzymes. Continue with alcohol withdrawal protocol. Thiamine and multivitamins and IV hydration. Cardiology was consulted. Patient has been counseled extensively about alcohol cessation. Follow-up closely. Time with Patient: Greater than 30
[2022-08-17] MEDS: SODIUM CHLORIDE 0.9% 1,000 ML IV SCH (04:02)
[2022-08-17 07:32] VITALS: BP 116/77; PULSE 70; RESP 18
[2022-08-17] MEDS ORDERED: HEPARIN SODIUM,PORCINE/PF 5,000 UNIT/0.5 ML SYRINGE SQ SCH (08:00)
[2022-08-17] MEDS ORDERED: PROPRANOLOL LA 60 MG CAP.SA.24H PO SCH (09:00)
[2022-08-17] MEDS ORDERED: THIAMINE 100 MG TAB PO SCH (09:00)
--- NOTE | 2022-08-17 10:08 | P.CRDCN ---
History of Present Illness History of present illness: HISTORY OF PRESENT ILLNESS: This is a 41-year-old female with a past medical history significant for anxiety, depression, vaping, and alcohol abuse. Patient does not follow with a hand edge bander. We have been asked to see the patient in consultation for SVT. Patient examined at the bedside. Patient states that she was working from home yesterday when she began having palpitations. She states that she felt dizzy when she would stand up. She states that her left arm felt tingly along with the side of her face. She states that she has had this happen many times in the past dating back to when she was a teenager. She states that it usually goes away quickly and it is not as intense as it was yesterday which prompted her to come to the emergency room. Patient was found to be in SVT and she was converted with adenosine. Vagal maneuvers were unsuccessful in the emergency room. The patient is maintaining sinus mechanism this morning * EKG reveals 2:1 atrial tachycardia versus SVT * Chest xray no acute cardiopulmonary process * Laboratory data: WBC 2.7. Hemoglobin 13.2. Platelet count 111. Sodium 134. Potassium 3.4. BUN 8. Creatinine 0.67. Magnesium 1.8. AST 636. ALT 265. Troponin negative 3 TSH 1.130. * Current home cardiac medications include none REVIEW OF SYSTEMS: At the time of my exam: CONSTITUTIONAL: Denies fever or chills. HEENT: Denies blurred vision, vision changes, or eye pain. Denies hemoptysis CARDIOVASCULAR: Denies chest pain. Denies orthopnea. Denies PND. Denies palpitations RESPIRATORY: Denies shortness of breath. GASTROINTESTINAL: Denies abdominal pain. Denies nausea or vomiting. HEMATOLOGIC: Denies bleeding disorders. GENITOURINARY: Denies any blood in urine. SKIN: Denies pruitis. Denies rash. PHYSICAL EXAM: VITAL SIGNS: Reviewed. GENERAL: Well-developed in no acute distress. HEENT: Head is normocephalic. Pupils are equal, round. Sclerae anicteric. Mucous membranes of the mouth are moist. Neck supple. No JVD or thyromegaly LUNGS: Respirations even and unlabored. Lungs essentially clear to auscultation bilaterally. HEART: Regular rate and rhythm. S1 and S2 heard. ABDOMEN: Soft. Nondistended. Nontender. EXTREMITIES: Normal range of motion. No clubbing or cyanosis. Peripheral pulses intact. No lower extremity edema NEUROLOGIC: Awake and alert. Oriented x 3. ASSESSMENT: Palpitations 2:1 atrial tachycardia versus SVT, converted with adenosine, vagal maneuvers unsuccessful Alcohol abuse Transaminitis Thrombocytopenia Anxiety Depression Nicotine dependence, patient vapes PLAN: Obtain 2-D echo to assess cardiac structure and function Begin propanolol LA 60 mg daily Patient may be discharged home today from a cardiac standpoint She'll follow-up with Dr. Campa Discussed outpatient ablation in the next 1-2 months with patient Absence from alcohol recommended Nurse practitioner note has been reviewed by physician. Signing provider agrees with the documented findings, assessment, and plan of care. Past Medical History Past Medical History: Supraventricular Tachycardia (SVT) History of Any Multi-Drug Resistant Organisms: None Reported Past Surgical History: Section Additional Past Surgical History / Comment(s): neck surgery Past Anesthesia/Blood Transfusion Reactions: Unable to Obtain Past Psychological History: Anxiety, Depression Smoking Status: Vaper Past Alcohol Use History: Daily, Heavy Past Drug Use History: None Reported Medications and Allergies Home Medications Medication Instructions Recorded Confirmed Type Propranolol LA [Inderal LA] 60 mg PO DAILY #90 cap 08/17/22 Rx Allergies Allergy/AdvReac Type Severity Reaction Status Date / Time No Known Allergies Allergy Verified 08/16/22 11:11 Physical Exam Vitals: Vital Signs Temp Pulse Pulse Resp BP BP Pulse Ox 08/17/22 07:10 98.1 F 70 18 116/77 98 08/17/22 00:15 98.1 F 83 16 117/77 98 08/16/22 19:20 98.6 F 78 16 127/78 99 08/16/22 18:31 98.2 F 91 18 118/79 100 08/16/22 15:51 104 H 117/83 98 08/16/22 14:34 75 08/16/22 14:16 98.6 F 75 16 114/63 100 08/16/22 14:13 98.7 F 88 16 114/63 08/16/22 13:07 66 20 126/44 97 08/16/22 11:39 65 20 113/76 100 08/16/22 11:01 66 18 120/82 100 08/16/22 10:03 78 18 130/74 100 08/16/22 09:24 101 H 20 136/99 100 08/16/22 09:15 98.5 F 187 H 18 138/112 100 08/16/22 09:03 190 H 30 H 133/87 100 08/16/22 08:58 97.8 F 185 H 20 131/82 100 Intake and Output 08/16/22 08/17/22 08/17/22 22:59 06:59 14:59 Other: # Voids 1 1 Results 08/16/22 09:10 08/16/22 09:10 Cardiac Enzymes 08/16/22 08/16/22 08/16/22 Range/Units 09:10 09:10 11:56 AST 636 H (14-36) U/L Troponin I <0.012 <0.012 (0.000-0.034) ng/mL 08/16/22 Range/Units 15:14 AST (14-36) U/L Troponin I <0.012 (0.000-0.034) ng/mL Coagulation 08/16/22 Range/Units 09:10 PT 9.7 (9.0-12.0) sec APTT 22.2 (22.0-30.0) sec CBC 08/16/22 Range/Units 09:10 WBC 2.7 L (3.8-10.6) k/uL RBC 4.04 (3.80-5.40) m/uL Hgb 13.2 (11.4-16.0) gm/dL Hct 38.2 (34.0-46.0) % Plt Count 111 L (150-450) k/uL Comprehensive Metabolic Panel 08/16/22 Range/Units 09:10 Sodium 138 (137-145) mmol/L Potassium 3.4 L (3.5-5.1) mmol/L Chloride 99 (98-107) mmol/L Carbon Dioxide 28 (22-30) mmol/L BUN 8 (7-17) mg/dL Creatinine 0.67 (0.52-1.04) mg/dL Glucose 92 (74-99) mg/dL Calcium 9.3 (8.4-10.2) mg/dL AST 636 H (14-36) U/L ALT 265 H (4-34) U/L Alkaline Phosphatase 118 (38-126) U/L Total Protein 7.3 (6.3-8.2) g/dL Albumin 4.7 (3.5-5.0) g/dL Current Medications Generic Name Dose Route Start Last Admin Trade Name Freq PRN Reason Stop Dose Admin Heparin Sodium (Porcine) 5,000 unit 08/17/22 08:00 Heparin Sodium,Porcine/Pf 5,000 Unit/0.5 Ml Syringe SQ Q8HR MADHAV Sodium Chloride 1,000 mls @ 130 mls/hr 08/16/22 11:15 08/17/22 04:02 Saline 0.9% IV Not Given .[id number] MADHAV Lorazepam 0.5 mg 08/16/22 11:08 08/16/22 17:43 Lorazepam 0.5 Mg Tab PO 0.5 mg Q4HR PRN Administration Ciwa 4 To 5 Lorazepam 1 mg 08/16/22 11:08 Lorazepam 1 Mg Tab PO Q4HR PRN Ciwa 6 To 7 Lorazepam 2 mg 08/16/22 11:08 Lorazepam 1 Mg Tab PO Q2HR PRN Ciwa 10 or greater Lorazepam 2 mg 08/16/22 11:08 08/16/22 14:31 Lorazepam 1 Mg Tab PO 2 mg Q3HR PRN Administration Ciwa 8 To 9 Lorazepam 1 mg 08/16/22 11:08 Lorazepam 1 Mg Tab PO Q1HR PRN Alcohol Withdrawal Naloxone HCl 0.2 mg 08/16/22 11:05 Naloxone 0.4 Mg/Ml 1 Ml Vial IV Q2M PRN Opioid Reversal Thiamine HCl 100 mg 08/17/22 09:00 Thiamine 100 Mg Tab PO DAILY MADHAV Intake and Output 08/16/22 08/17/22 08/17/22 22:59 06:59 14:59 Other: # Voids 1 1 08/16/22 09:10 08/16/22 09:10
[2022-08-17 11:17] LABS: African American GFR (CKD) 130.3 (60.0-200.0); Albumin 3.8 g/dL (3.8-4.9); Anion Gap 9.3 mmol/L (10.00-18.00); BUN/Creat Ratio 8.33 Ratio (12.00-20.00); Calcium 8.9 mg/dL (8.7-10.3); Carbon Dioxide 25.7 mmol/L (20.0-27.5); Globulin 1.9 g/dL (1.6-3.3); Non-African American GFR(CKD) 112.4 (60.0-200.0); Potassium 3.6 mmol/L (3.5-5.5); Total Bilirubin 0.6 mg/dL (0.30-1.20); Total Protein 5.7 g/dL (6.2-8.2)
[2022-08-17 12:52] LABS: Basophils # (A) 0.02 X 10*3/uL (0.00-0.10); Eosinophils # (A) 0.15 X 10*3/uL (0.04-0.35); Eosinophils % (A) 7.2 %; HCT 31.4 % (37.2-46.3); HGB 10.7 g/dL (12.0-15.0); Immature Grans, Automated 0 %; Lymphocytes # (A) 0.65 X 10*3/uL (0.90-5.00); Lymphocytes % (A) 31.4 %; MCH 32.2 pg (27.0-32.0); MCHC 34.1 g/dL (32.0-37.0); MCV 94.6 fL (80.0-97.0); Mean Platelet Volume 11.9 fL (9.5-12.2); Monocytes # (A) 0.22 X 10*3/uL (0.20-1.00); Monocytes % (A) 10.6 %; NRBC Per 100 WBC 0 /100 WBCS (0.0-0.0); Neutrophils # (A) 1.03 X 10*3/uL (1.80-7.70); Neutrophils % (A) 49.8 %; Platelet Count 88 X 10*3/uL (140-440); RBC 3.32 X 10*6/uL (4.10-5.20); RDW 12.9 % (11.5-14.5); WBC 2.07 X 10*3/uL (4.50-10.00)
[2022-08-17 15:11] LABS: Basophils % (A) 1 %; Eosinophils # (A) 0.2 k/uL (0-0.7); Eosinophils % (A) 7 %; HCT 31.9 % (34.0-46.0); HGB 11.2 gm/dL (11.4-16.0); Lymphocytes # (A) 0.6 k/uL (1.0-4.8); Lymphocytes % (A) 30 %; MCH 33.3 pg (25.0-35.0); MCHC 35.1 g/dL (31.0-37.0); MCV 94.9 fL (80.0-100.0); Mean Platelet Volume 10.5; Monocytes # (A) 0.1 k/uL (0-1.0); Monocytes % (A) 6 %; Neutrophils # (A) 1.2 k/uL (1.3-7.7); Neutrophils % (A) 55 %; RBC 3.36 m/uL (3.80-5.40); RDW 12.9 % (11.5-15.5); WBC 2.1 k/uL (3.8-10.6)
[2022-08-17 15:18] LABS: Platelet Count 91 k/uL (150-450)
--- NOTE | 2022-08-17 15:57 | CA ---
Transthoracic Echo Report Name: Donna Meier Age: 41 Gender: F : 1980 Exam Date: 08/17/2022 09:46 Exam Location: [facility] Ht (in): 65 Wt (lb): 140 Ordering Physician: Crystal Sloan Attending/Referring Phys: [id number], Nathalia Supervisor Edging Tyrone Archer RDCS Procedure CPT: Indications: LV function, SVT Cardiac Hx: Technical Quality: Fair Contrast 1: Total Dose (mL): Contrast 2: Total Dose (mL): MEASUREMENTS (Male / Female) Normal Values 2D ECHO LV Diastolic Diameter PLAX 3.6 cm 4.2 - 5.9 / 3.9 - 5.3 cm LV Systolic Diameter PLAX 2.6 cm LV Fractional Shortening PLAX 26.2 % IVS Diastolic Thickness 0.8 cm 0.6 - 1.0 / 0.6 - 0.9 cm IVS Systolic Thickness 1.1 cm LVPW Diastolic Thickness 0.9 cm 0.6 - 1.0 / 0.6 - 0.9 cm LVPW Systolic Thickness 1.2 cm LV Relative Wall Thickness 0.5 RV Internal Dim ED PLAX 2.0 cm LVOT Diameter 1.8 cm LA Systolic Diameter LX 2.7 cm 3.0 - 4.0 / 2.7 - 3.8 cm LV Diastolic Volume MOD BP 65.7 cm??? 67 - 155 / 56 - 104 cm??? LV Systolic Volume MOD BP 28.2 cm??? 22 - 58 / 19 - 49 cm??? LV Ejection Fraction MOD BP 57.1 % >= 55 % LV Stroke Volume MOD BP 37.5 cm??? LV Diastolic Volume MOD 4C 80.5 cm??? LV Systolic Volume MOD 4C 33.7 cm??? LV Ejection Fraction MOD 4C 58.1 % LV Stroke Volume MOD 4C 46.7 cm??? LV Diastolic Length 4C 7.0 cm LV Systolic Length 4C 5.1 cm LV Diastolic Volume MOD 2C 42.3 cm??? LV Systolic Volume MOD 2C 20.8 cm??? LV Ejection Fraction MOD 2C 50.7 % LV Stroke Volume MOD 2C 21.5 cm??? LV Diastolic Length 2C 5.4 cm LV Systolic Length 2C 4.5 cm Ascending Aorta Diameter 2.2 cm M-MODE Aortic Root Diameter MM 3.0 cm LA Systolic Diameter MM 3.3 cm LA Ao Ratio MM 1.1 MV E Point Septal Separation 0.9 cm AV Cusp Separation MM 2.0 cm DOPPLER AV Peak Velocity 103.8 cm/s AV Peak Gradient 4.3 mmHg MV Deceleration Tyrrell 406.9 cm/s??? MR Peak Velocity 268.7 cm/s MR Peak Gradient 28.9 mmHg Mitral E Point Velocity 71.4 cm/s Mitral A Point Velocity 83.1 cm/s Mitral E to A Ratio 0.9 MV Deceleration Time 175.5 ms MV E' Velocity 8.2 cm/s Mitral E to MV E' Ratio 8.7 TR Peak Velocity 181.0 cm/s TR Peak Gradient 13.1 mmHg Right Ventricular Systolic Press 21.1 mmHg PV Peak Velocity 87.8 cm/s PV Peak Gradient 3.1 mmHg FINDINGS Left Ventricle Left ventricular ejection fraction is estimated at 55-60 %. Grade 1 diastolic dysfunction. Right Ventricle Normal right ventricular size and function. Right Atrium Normal right atrial size. Left Atrium Normal left atrial size. Mitral Valve Structurally normal mitral valve. Mild mitral regurgitation. Aortic Valve Trileaflet aortic valve. Tricuspid Valve Mild tricuspid regurgitation. Pulmonic Valve Structurally normal pulmonic valve. Pericardium Normal pericardium. No pericardial effusion. Aorta Normal size aortic root and proximal ascending aorta. CONCLUSIONS Normal LV size and systolic function Previewed by: Dr. Alex Cmapa MD (Electronically Signed) Final Date: 17 August 2022 15:56
--- NOTE | 2022-08-20 20:20 | P.DS ---
Providers Date of admission: 08/16/22 11:06 Expected date of discharge: 08/17/22 Attending physician: Twan Cisneros MD Consults: 08/16/22 11:03 Consult Physician Routine Consulting Provider: Pablo Centeno Consult Reason/Comments: New onet SVT Do you want consulting provider notified?: Yes Primary care physician: Stated None Hospital Course: Final diagnosis Supraventricular tachycardia on admission status post adenosine 6 mg IV push x1 Daily alcohol abuse Transaminitis Leukopenia Hypokalemia History of anxiety/depression DVT prophylaxis Discharge disposition Patient is being discharged in a stable condition with guarded prognosis to home. Patient will follow-up with Dr. Perkins in the outpatient setting upon discharge. Patient is to continue with propranolol and outpatient follow- up with cardiology as scheduled. Total time taken is greater than 35 minutes. Hospital course This is a 41-year-old female who was recently admitted with SVT status post c onversion after adenosine. Patient monitored closely on telemetry monitored with cardiology is evaluating the patient started on propranolol and has been cleared for outpatient follow-up with further testing in the outpatient setting. Please refer to cardiologyfor further HPI. Patient instructed to avoid all alcohol use and exposure and recommend medication and outpatient follow-up complaints. Currently no reports of chest pain, shortness of breath, or palpitations. Patient is afebrile. No reports of nausea or vomiting and patient is tolerating diet. Patient will be discharged home today. Guarded prognosis. Physical exam: Gen: This is a 41-year-old female who is awake, alert and oriented 3, well- developed, well-nourished HEENT: Head is atraumatic, normocephalic. Pupils equal, round. Sclerae is anicteric. NECK: Supple. No JVD. No lymphadenopathy. No thyromegaly. LUNGS: Clear to auscultation. No wheezes or rhonchi. No intercostal retractions. HEART: S1, S2 muffled, irregular ABDOMEN: Soft. Bowel sounds are present. No masses. No tenderness. EXTREMITIES: No pedal edema. No calf tenderness. NEUROLOGICAL: Patient is awake, alert and oriented x3. Cranial nerves 2 through 12 are grossly intact. Please refer to medication reconciliation sheet for a list of medications. The impression and plan of care has been dictated by Bonnie Browne, Nurse Practitioner as directed. Dr. Napoleon MD I have performed a history and examination and MDM of this patient, discussed the same with the dictator, and agree with the dictator's assessment and plan as written ,documented as a scribe. Based on total visit time, I have performed more than 50% of the visit. Patient Condition at Discharge: Stable Plan - Discharge Summary New Discharge Prescriptions: New Propranolol LA [Inderal LA] 60 mg PO DAILY #90 cap Thiamine [Vitamin B-1] 100 mg PO DAILY 30 Days #30 tab Discharge Medication List Propranolol LA [Inderal LA] 60 mg PO DAILY #90 cap 08/17/22 [Rx] Thiamine [Vitamin B-1] 100 mg PO DAILY 30 Days #30 tab 08/17/22 [Rx] Follow up Appointment(s)/Referral(s): Alex Campa MD [STAFF PHYSICIAN] - 1 Week ([facility] will call patient with appointment date and time.) Pat Perkins MD [STAFF PHYSICIAN] - 1 Week Ambulatory/Diagnostic Orders: Complete Blood Count w/diff [LAB.AMB] Time Frame: 1 Week, Location: None Selected Activity/Diet/Wound Care/Special Instructions: Activity Limited until follow-up Follow-up with primary care provider and establish as soon as possible Follow-up with cardiology in the outpatient setting as instructed Continue taking medications as prescribed Follow heart healthy diet Avoid all alcohol use and exposure Repeat labs in the next few days Discharge/Stand Alone Forms: AA Meetings [place], Outpatient Counseling, Inp Substance Abuse Facilities Discharge Disposition: HOME SELF-CARE
== END 2022-08-17 16:44 | disposition home or self-care (01) ==
LOC: EC 08:56 → 6NMEDSUR 11:06
PROVIDERS: ADMIT Internal Medicine; ATTEND Internal Medicine
DX: I47.1 Supraventricular tachycardia (principal); E87.6 Hypokalemia; R74.01 Elevation of levels of liver transaminase levels; D72.819 Decreased white blood cell count, unspecified; F10.10 Alcohol abuse, uncomplicated; D69.6 Thrombocytopenia, unspecified; F32.A Depression, unspecified; F41.9 Anxiety disorder, unspecified; F17.290 Nicotine dependence, other tobacco product, uncomplicated; Z98.891 History of uterine scar from previous surgery; Z98.890 Other specified postprocedural states; Z71.41 Alcohol abuse counseling and surveillance of alcoholic
CPT/HCPCS: 96361 ×3; 96372 ×2; 96374; 99285; 36415; 94760; 93005; 93306; 80053 ×2; 84443; 83735; 84484; 85025 ×2; 85610; 85730; 81001; 81025; 71046; G0378 ×2; J3411; J0153; J1644; 96366

== ENCOUNTER → 2022-10-25 | Outpatient (CLI) | payer BC ==
[2022-10-25 10:55] LABS: ALT 36 U/L (4-34); AST 50 U/L (14-36); African American GFR (CKD) >90 (>60 ml/min/1.73 sqM); Albumin 4.3 g/dL (3.5-5.0); Albumin/Globulin Ratio 1.6; Alkaline Phosphatase 55 U/L (38-126); Anion Gap 10 mmol/L; Bilirubin,Unconjugated 0.2 mg/dL (0.0-1.1); Blood Urea Nitrogen 7 mg/dL (7-17); Calcium 8.7 mg/dL (8.4-10.2); Carbon Dioxide 23 mmol/L (22-30); Chloride 104 mmol/L (98-107); Globulin 2.7 g/dL; Glucose 78 mg/dL (74-99); Non-African American GFR(CKD) >90 (>60 ml/min/1.73 sqM); Potassium 4.7 mmol/L (3.5-5.1); Sodium 137 mmol/L (137-145); Total Bilirubin 0.4 mg/dL (0.2-1.3)
[2022-10-25 11:31] LABS: Basophils % (A) 1 %; Eosinophils # (A) 0.2 k/uL (0-0.7); Eosinophils % (A) 6 %; HGB 12.8 gm/dL (11.4-16.0); Lymphocytes % (A) 31 %; MCH 33.5 pg (25.0-35.0); MCHC 33.6 g/dL (31.0-37.0); MCV 99.7 fL (80.0-100.0); Mean Platelet Volume 10.6; Monocytes # (A) 0.2 k/uL (0-1.0); Monocytes % (A) 5 %; Neutrophils # (A) 1.7 k/uL (1.3-7.7); Neutrophils % (A) 54 %; Platelet Count 154 k/uL (150-450); RBC 3.82 m/uL (3.80-5.40); RDW 13.2 % (11.5-15.5); WBC 3.2 k/uL (3.8-10.6)
== END | disposition home or self-care (01) ==
LOC: LABWHC1 09:14
PROVIDERS: ATTEND Internal Medicine Clinical Cardiac Electrophysiology
DX: D64.9 Anemia, unspecified (principal); R74.01 Elevation of levels of liver transaminase levels
CPT/HCPCS: 36415; 80053; 82248; 85025

== ENCOUNTER 2022-10-26 09:16 | Day surgery (SDC) | payer BC ==
[2022-10-26] MEDS: SODIUM CHLORIDE 0.9% 1,000 ML IV SCH (09:40)
[2022-10-26 09:58] LABS: Basophils % (A) 1 %; Eosinophils # (A) 0.2 k/uL (0-0.7); Eosinophils % (A) 4 %; HCT 37.6 % (34.0-46.0); HGB 12.9 gm/dL (11.4-16.0); Lymphocytes # (A) 1.6 k/uL (1.0-4.8); Lymphocytes % (A) 33 %; MCH 33.5 pg (25.0-35.0); MCHC 34.4 g/dL (31.0-37.0); MCV 97.6 fL (80.0-100.0); Monocytes # (A) 0.2 k/uL (0-1.0); Monocytes % (A) 4 %; Neutrophils # (A) 2.6 k/uL (1.3-7.7); Neutrophils % (A) 55 %; Platelet Count 157 k/uL (150-450); RBC 3.86 m/uL (3.80-5.40); RDW 13.3 % (11.5-15.5); WBC 4.8 k/uL (3.8-10.6)
[2022-10-26 10:14] LABS: African American GFR (CKD) >90 (>60 ml/min/1.73 sqM); Anion Gap 11 mmol/L; Blood Urea Nitrogen 9 mg/dL (7-17); Calcium 8.5 mg/dL (8.4-10.2); Carbon Dioxide 19 mmol/L (22-30); Chloride 109 mmol/L (98-107); Glucose 83 mg/dL (74-99); Non-African American GFR(CKD) >90 (>60 ml/min/1.73 sqM); Sodium 139 mmol/L (137-145)
[2022-10-26 10:33] LABS: Potassium 4.3 mmol/L (3.5-5.1)
[2022-10-26] MEDS ORDERED: METOPROLOL TARTRATE 5 MG/5 ML VIAL IVP ONE ×3 (10:41→15:08)
[2022-10-26] MEDS ORDERED: fentaNYL (PF) 50 MCG/ML 2 ML AMP ONE (10:41)
[2022-10-26] MEDS ORDERED: MIDAZOLAM 2 MG/2 ML VIAL ONE (10:41)
[2022-10-26] MEDS ORDERED: PROPOFOL 10 MG/ML 20 ML VIAL IV ONE (10:41)
[2022-10-26] MEDS ORDERED: LIDOCAINE 1% INJ 10MG/ML (20 ML MDV) SQ ONE ×2 (11:09)
[2022-10-26] MEDS ORDERED: HEPARIN SODIUM (1,000 UNIT/ML) 1,000 UNIT in SODIUM CHLORIDE 0.9% 1,000 ML IRRIGATION ONE (11:30)
[2022-10-26] MEDS ORDERED: LIDOCAINE 1% INJ 10MG/ML (20 ML MDV) ONE (12:46)
[2022-10-26] MEDS ORDERED: IBUTILIDE 1 MG in SODIUM CHLORIDE 0.9% 50 ML IVPB ONE (13:30)
[2022-10-26] MEDS: MAGNESIUM SULFATE-D5W PMX 1 GM in DEXTROSE/WATER 1 100ML.BAG IVPB SCH (13:40)
--- NOTE | 2022-10-26 15:13 | P.HPCAR ---
History of Present Illness This is Dr. 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 Her heart rates greater than 220 beats minute during SVT when she has failed vagal maneuvers No fever chills cough expectoration No syncope recently No chest discomfort ROS: No fever chills or rigors, no cough, phlegm or expectoration, no nausea, vomiting or diarrhea, no hematuria, dysuria, no musculoskeletal complaints, no strokes or seizures, no skin lesions. EXAMINATION: 128/70 mmHg pulse rate in the 60s, afebrile Breath sounds are clear no rhonchi no crackles Normal heart sounds Abdomen soft Extremities warm no edema REVIEW OF LABS, ECG & MEDICAL DATA Hemoglobin 12.9, white count 4.8 thousand Platelet count 157,000 Sodium 139, potassium 4.3 Normal renal function Physical Exam Vitals: Vital Signs Temp Pulse Resp BP Pulse Ox 10/26/22 09:35 97.8 F 60 16 128/70 98 Intake and Output 10/26/22 10/26/22 10/26/22 06:59 14:59 22:59 Intake Total 1674 Balance 1674 Intake: IV 1674 Other: Weight 61.4 kg Past Medical History Past Medical History: GERD/Reflux Additional Past Medical History / Comment(s): states heart palpitations, feels sob and dizzy at times., See [facility] Sees chiropractor for her back. History of Any Multi-Drug Resistant Organisms: None Reported Past Surgical History: Section Additional Past Surgical History / Comment(s): cervical surgery 4-5-6 with titanium cage. Past Anesthesia/Blood Transfusion Reactions: No Reported Reaction Past Psychological History: Anxiety, Depression Additional Psychological History / Comment(s): states she stopped her meds 6 months ago. Smoking Status: Former smoker, Vaper Past Alcohol Use History: Daily, Heavy Additional Past Alcohol Use History / Comment(s): quit smoking cigarettes 3 years ago, started smoking age 15.- currently vapes. currently not drinking- states she had cut down to a couple drinks a week, hx of heavy alcohol use. Past Drug Use History: None Reported Physical Examination Vital Signs Temp Pulse Resp BP Pulse Ox 10/26/22 09:35 97.8 F 60 16 128/70 98 Intake and Output 10/26/22 10/26/22 10/26/22 06:59 14:59 22:59 Intake Total 1674 Balance 1674 Intake: IV 1674 Other: Weight 61.4 kg Results 10/26/22 09:40 10/26/22 09:40 CBC 10/26/22 Range/Units 09:40 WBC 4.8 (3.8-10.6) k/uL RBC 3.86 (3.80-5.40) m/uL Hgb 12.9 (11.4-16.0) gm/dL Hct 37.6 (34.0-46.0) % Plt Count 157 (150-450) k/uL Comprehensive Metabolic Panel 10/26/22 Range/Units 09:40 Sodium 139 (137-145) mmol/L Potassium 4.3 (3.5-5.1) mmol/L Chloride 109 H (98-107) mmol/L Carbon Dioxide 19 L (22-30) mmol/L BUN 9 (7-17) mg/dL Creatinine 0.69 (0.52-1.04) mg/dL Glucose 83 (74-99) mg/dL Calcium 8.5 (8.4-10.2) mg/dL Current Medications Generic Name Dose Route Start Last Admin Trade Name Freq PRN Reason Stop Dose Admin Lactated Ringer's 1,000 mls @ 20 mls/hr 10/26/22 06:31 Lactated Ringers IV 11/25/22 06:32 .Q24H MADHAV Sodium Chloride 1,000 mls @ 20 mls/hr 10/26/22 10:00 10/26/22 09:40 Saline 0.9% IV 11/25/22 10:01 900 mls .Q24H MADHAV Administration Magnesium Sulfate/Dextrose 1 100 mls @ 100 mls/hr 10/26/22 13:30 10/26/22 13:40 gm/ IV Solution IVPB 10/26/22 15:29 100 mls Q1H MADHAV Administration Intake and Output 10/26/22 10/26/22 10/26/22 06:59 14:59 22:59 Intake Total 1674 Balance 1674 Intake: IV 1674 Other: Weight 61.4 kg Patient Weight 10/27/22 06:59 Weight 61.4 kg 10/26/22 09:40 10/26/22 09:40
[2022-10-26] MEDS: LACTATED RINGERS 1,000 ML IV SCH (15:21)
--- NOTE | 2022-10-26 15:22 | P.EPPROC ---
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 Patient has mild cardio myopathy abnormal liver functions and very easily inducible atrial fibrillation SVT has been successfully eliminated with ablation Details Patient was brought to the EP lab in a fasting state. Written informed consent was obtained prior to the procedure. Venous sheaths were placed in the right left femoral veins Diagnostic catheters placed in the right atrium, His bundle area, right ventricle and coronary sinus Sinus cycle length 900 ms, NH interval 121 ms, QRS 95 and QT 468 ms AH 73 and HV 29 ms Zakiya response noted with Parahisian pacing VA Wenckebach block 500 ms Retrograde slow pathway conduction noted with ventricular pacing AV node Wenckebach block 380 ms Sinus node recovery times at 600, 500 and, 400 ms were 1288, 1289 and 1106 ms Very easily inducible long RP tachycardia consistent with atypical AV zakiya reentry induced with CS extrastimulation@600/320 ms This was also very easily inducible with extermination from the right ventricle@600/420 ms associated with retrograde jump Atypical AV zakiya reentry was induced Activation mapping was performed of the retrogradely conducted atrial beat when pacing from the right ventricle at 600/360 ms The earliest activation was noted to be just outside the coronary sinus and anterior to it RF ablation was applied successfully However during RF delivery just above this successful site, atrial fibrillation was induced Thereafter atrial fibrillation became incessant and would not terminate 2 electrical cardioversions to be performed but with minimal stimulation and Movement. Equal Back into A. fib IV Ibutilide 1 Mg Was Infused over 10-15 Minutes IV Magnesium Was Given The Patient Was Cardioverted Once Again and This Time She Maintains Sinus Rhythm to Allow Completion of the Ablation RF Ablation Was Applied from the Anterior Os of the Coronary Sinus to the Earliest Site of Activation Following That Atrial and Ventricular Extra Stimulation Performed High Right Atrial Stimulation Was Performed Extra Stimulation Was Performed from Multiple Sites There Was Evidence for Antegrade and Retrograde Slow Pathway Conduction but Very Occasional Echo Beats Were Noted, Typical There Was No Evidence for Atypical AV Zakiya Reentry There Was No Evidence for Typical AV Node Reentry Low-Dose Isuprel Was Given an Atrial Stimulation Was Performed. No SVT Was I nduced High-Dose Isuprel Was Administered but with Coronary Sinus Pacing She Once Again Went into Atrial Fibrillation with RVR IV Metoprolol Was Then Given Catheters Were Then Removed and Hemostasis Was Assured with Vascade Closure Devices
[2022-10-26] MEDS ORDERED: ACETAMINOPHEN IV (For NPO) 1,000 MG in EMPTY BAG 1 BAG IVPB ONE (15:24)
[2022-10-26] MEDS ORDERED: ACETAMINOPHEN TAB 325 MG TAB PO PRN (15:24)
--- NOTE | 2022-10-26 19:13 | P.EPPROC ---
- EP Procedure Note Electrophysiology Procedure Note: This was a long procedure During mapping as well as during RF ablation patient would repeatedly go into atrial fibrillation requiring multiple cardioversions Findings V. tach to suppress atrial fibrillation with ibutilide Electrical cardioversion was performed once again IV magnesium was administered Following that we waited for some time once the patient settled down and performed a follow-up EP study to ensure that there was successful ablation of AV node reentry The patient went to atrial fibrillation once again once he started Isuprel with pacing in the coronary sinus
[2022-10-27] MEDS: LACTATED RINGERS 1,000 ML IV SCH (02:45)
[2022-10-27 07:33] VITALS: RESP 18
[2022-10-27] MEDS: SODIUM CHLORIDE 0.9% 1,000 ML IV SCH (08:14)
[2022-10-27] MEDS ORDERED: PROPRANOLOL LA 60 MG CAP.SA.24H PO PRN (09:00)
--- NOTE | 2022-10-27 11:42 | CA ---
Transthoracic Echo Report Name: Donna Meier Age: 42 Gender: F : 1980 Exam Date: 10/27/2022 11:17 Exam Location: [facility] Ht (in): 65 Wt (lb): 135 Ordering Physician: Alex Campa MD ([id number]) Attending/Referring Phys: Pin Inserter Regulator Vandana Golden RDCS Procedure CPT: Indications: EP study Cardiac Hx: limited study Technical Quality: Good Contrast 1: Total Dose (mL): Contrast 2: Total Dose (mL): MEASUREMENTS (Male / Female) Normal Values FINDINGS Left Ventricle Post EP study. Left ventricular ejection fraction is estimated at 55-60 %. No obvious regional wall motion abnormalities. Normal basal systolic function. Right Ventricle Right Atrium Left Atrium Mitral Valve Aortic Valve Tricuspid Valve Pulmonic Valve Pericardium Aorta CONCLUSIONS Normal LV function Normal pericardial effusion Previewed by: Dr. Froilan Thompson MD (Electronically Signed) Final Date: 27 October 2022 11:41
[2022-10-27 13:53] VITALS: BP 111/73; PULSE 71; TEMP 98.2
== END 2022-10-27 17:05 | disposition home or self-care (01) ==
LOC: CATHEP 09:16 → 6NMEDSUR 15:00 → CATHEP 10-27 17:05
PROVIDERS: ATTEND Internal Medicine Clinical Cardiac Electrophysiology
DX: I47.1 Supraventricular tachycardia (principal); I48.91 Unspecified atrial fibrillation; K21.9 Gastro-esophageal reflux disease without esophagitis; F41.8 Other specified anxiety disorders; F17.290 Nicotine dependence, other tobacco product, uncomplicated; F10.90 Alcohol use, unspecified, uncomplicated; Z98.891 History of uterine scar from previous surgery; Z79.899 Other long term (current) drug therapy
CPT/HCPCS: 93308; 92960; 93623; 93653; 86900; 86901; 80048; 85025; 86850; 81025; C1894; C1769; C1760; C1730 ×3; C1893; C1732; J2001; J1742; J1644; J3475

== ENCOUNTER 2024-02-24 09:30 | Emergency (ER) | payer BC, OTHER ==
[2024-02-24 10:16] VITALS: BP 100/53; PULSE 60; RESP 18; TEMP 98.5
--- NOTE | 2024-02-24 10:34 | ED ---
Back Pain HPI - General Chief Complaint: Back Pain/Injury Stated Complaint: back injury-[facility] Time Seen by Provider: 02/24/24 09:45 Source: patient, RN notes reviewed Limitations: no limitations - History of Present Illness Initial Comments: This is a 43-year-old female presents emergency department chief complaint of a lower back injury while she was at work. States that while she was at work this morning at 08 100 she felt a pulling and popping sensation of her lower back when she was picking up a piece of heavy equipment. She denies loss of bladder or bowel continence or saddle anesthesias. Denies radiation of pain down bilateral lower extremities. - Related Data Home Medications Medication Instructions Recorded Confirmed Ibuprofen [Motrin Ib] 600 mg PO DIRECTED PRN 10/23/22 10/23/22 Propranolol LA [Inderal LA] 60 - 180 mg PO DAILY PRN 10/23/22 10/23/22 Previous Rx's Medication Instructions Recorded Cyclobenzaprine [Flexeril] 10 mg PO TID PRN #15 tab 02/24/24 Ibuprofen [Motrin] 800 mg PO Q6HR #30 tab 02/24/24 Allergies Allergy/AdvReac Type Severity Reaction Status Date / Time No Known Allergies Allergy Verified 10/23/22 15:49 Review of Systems ROS Statement: Those systems with pertinent positive or pertinent negative responses have been documented in the HPI. ROS Other: All systems not noted in ROS Statement are negative. Past Medical History Past Medical History: GERD/Reflux Additional Past Medical History / Comment(s): states heart palpitations, feels sob and dizzy at times., See [facility] Sees chiropractor for her back. History of Any Multi-Drug Resistant Organisms: None Reported Past Surgical History: Section Additional Past Surgical History / Comment(s): cervical surgery 4-5-6 with titanium cage. Past Anesthesia/Blood Transfusion Reactions: No Reported Reaction Past Psychological History: Anxiety, Depression Smoking Status: Former smoker, Vaper Past Alcohol Use History: Daily, Heavy Past Drug Use History: None Reported General Exam - General Exam Comments Initial Comments: Visual Physical Exam Vital signs reviewed General: Well-appearing, nontoxic, no acute distress. Head: Normocephalic, atraumatic Eyes: PERRLA, EOMI ENT: Airway patent Chest: Nonlabored breathing Skin: No visual rash, normal skin tone Neuro: Alert and oriented 3 Musculoskeletal: No gross abnormalities Limitations: no limitations General appearance: alert, in no apparent distress Eye exam: Present: normal appearance, PERRL, EOMI. Absent: scleral icterus, conjunctival injection, periorbital swelling ENT exam: Present: normal exam, mucous membranes moist Neck exam: Present: normal inspection. Absent: tenderness, meningismus, lymphadenopathy Respiratory exam: Present: normal lung sounds bilaterally. Absent: respiratory distress, wheezes, rales, rhonchi, stridor Cardiovascular Exam: Present: regular rate, normal rhythm, normal heart sounds. Absent: systolic murmur, diastolic murmur, rubs, gallop, clicks GI/Abdominal exam: Present: soft, normal bowel sounds. Absent: distended, tenderness, guarding, rebound, rigid Extremities exam: Present: normal inspection, full ROM, normal capillary refill. Absent: tenderness, pedal edema, joint swelling, calf tenderness Back exam: Present: normal inspection, tenderness (lumbar spine with ROM and palpation) Neurological exam: Present: alert, oriented X3, CN II-XII intact Skin exam: Present: warm, dry, intact, normal color. Absent: rash Course Vital Signs 02/24/24 10:13 Temperature 98.5 F Pulse Rate 60 Respiratory 18 Rate Blood Pressure 100/53 O2 Sat by Pulse 99 Oximetry Medical Decision Making - Medical Decision Making Was pt. sent in by a medical professional or institution (KAMERON Olvera, PRODUCER ASSISTANT, urgent care, hospital, or correction...) When possible be specific @ -No Did you speak to anyone other than the patient for history (EMS, parent, family, police, friend...)? What history was obtained from this source @ -No Did you review nursing and triage notes (agree or disagree)? Why? @ -I reviewed and agree with nursing and triage notes Were old charts reviewed (outside hosp., previous admission, EMS record, old EKG, old radiological studies, urgent care reports/EKG's, correction records)? Report findings @ -No old charts were reviewed Differential Diagnosis (chest pain, altered mental status, abdominal pain women, abdominal pain men, vaginal bleeding, weakness, fever, dyspnea, syncope, headache, dizziness, GI bleed, back pain, seizure, CVA, palpatations, mental health, musculoskeletal)? @ -Differential Back Pain: Strain, zoster, cauda equina syndrome, epidural abscess, vertebral osteomyelitis, discitis, fracture, subluxation, disc herniation, DJD, spinal stenosis, dissection, AAA, pancreatitis, peptic ulcer disease, pyelonephritis, kidney stone, this is not meant to be an all-inclusive list. EKG interpreted by me (3pts min.). @ -none X-rays interpreted by me (1pt min.). @ -XR of the lumbar spine reveals no evidence of fracture with minimal degenerative disc disease at the L4-L5 level CT interpreted by me (1pt min.). @ -None done U/S interpreted by me (1pt. min.). @ -None done What testing was considered but not performed or refused? (CT, X-rays, U/S, labs)? Why? @ -None What meds were considered but not given or refused? Why? @ -None Did you discuss the management of the patient with other professionals (professionals i.e. , PA, PRODUCER ASSISTANT, lab, RT, psych nurse, social science professor, order analyst, teacher, mobile patrol officer, case sealer)? Give summary @ -No Was smoking cessation discussed for >3mins.? @ -No Was critical care preformed (if so, how long)? @ -No Were there social determinants of health that impacted care today? How? (Homelessness, low income, unemployed, alcoholism, drug addiction, transportation, low edu. Level, literacy, decrease access to med. care, long-term, rehab)? @ -No Was there de-escalation of care discussed even if they declined (Discuss DNR or withdrawal of care, Hospice)? DNR status @ -No What co-morbidities impacted this encounter? (DM, HTN, Smoking, COPD, CAD, Cancer, CVA, ARF, Chemo, Hep., AIDS, mental health diagnosis, sleep apnea, morbid obesity)? @ -None Was patient admitted / discharged? Hospital course, mention meds given and route, prescriptions, significant lab abnormalities, going to OR and other pertinent info. @ -Discharge. 43-year-old female with lumbar back pain. On my evaluation the patient she is resting, no signs acute distress. Patient's lumbar back pain is exacerbated with range of motion and on palpation. She is neuro vastly intact. Straight leg test negative. No red flag symptoms concerning for cauda equina including loss of bladder or bowel continence or saddle anesthesias. Patient's x-ray unremarkable for acute process reveals degenerative changes. Patient is provided with prescription for Flexeril and ibuprofen instructed to take these only as needed. She is additionally provided with a work note and placed on light restrictions until follow-up with her primary care provider for further evaluation. Discussed with Dr. Coffey Undiagnosed new problem with uncertain prognosis? @ -No Drug Therapy requiring intensive monitoring for toxicity (Heparin, Nitro, Insulin, Cardizem)? @ -No Were any procedures done? @ -No Diagnosis/symptom? @ -lumbar back pain/back strain Acute, or Chronic, or Acute on Chronic? @ -acute Uncomplicated (without systemic symptoms) or Complicated (systemic symptoms)? @ -uncomplicated Side effects of treatment? @ -No Exacerbation, Progression, or Severe Exacerbation? @ -No Poses a threat to life or bodily function? How? (Chest pain, USA, ID, pneumonia, PE, COPD, DKA, ARF, appy, cholecystitis, CVA, Diverticulitis, Homicidal, Suicidal, threat to staff... and all critical care pts) @ -No Disposition Clinical Impression: Lumbar back pain, Pulled muscle Disposition: HOME SELF-CARE Condition: Good Instructions (If sedation given, give patient instructions): Low Back Strain (ED) Additional Instructions: Please return to the Emergency Department if symptoms worsen or any other concerns. Prescriptions: Cyclobenzaprine [Flexeril] 10 mg PO TID PRN #15 tab PRN Reason: Muscle Spasm Ibuprofen [Motrin] 800 mg PO Q6HR #30 tab Is patient prescribed a controlled substance at d/c from ED?: No Referrals: None,Stated [Primary Care Provider] - 1-2 days Time of Disposition: 12:07
--- NOTE | 2024-02-24 11:47 | XR ---
Lumbar spine. HISTORY: Popping sensation after lifting. COMPARISON: None. TECHNIQUE: 3 views lumbar spine were obtained. FINDINGS: The lumbar vertebral segments are normal in height and alignment there is no fracture or subluxation. The disc spaces are well preserved with the exception of minimal disc space narrowing at the L4-5 lev el. There is mild sclerosis of the SI joints from L3 through S1. IMPRESSION: 1. No lumbar spine fracture. 2. Minimal degenerative disease at the L4-5 level. 3. Sclerosis indicating arthrosis of the facet joints from L3 through S1. [facility], Workstation: [facility], 02/24/2024 11:45 AM
== END 2024-02-24 14:20 | disposition home or self-care (01) ==
LOC: EC 09:30
CPT/HCPCS: 72100; 99283

== ENCOUNTER → 2024-03-06 | Outpatient (CLI) | payer BC ==
--- NOTE | 2024-03-06 14:35 | MM ---
Reason for Exam: Screening (asymptomatic). Last mammogram was performed 3 year(s) and 10 month(s) ago. Patient History: Menarche at age 13. First Full-Term at age 20. Premenopausal. Maternal grandmother had breast cancer, age 50. Maternal aunt had breast cancer, age 40. Risk Values: Yesenia 5 year model risk: 0.6%. NCI Lifetime model risk: 8.0%. Prior Study Comparison: 05/05/2020 Bilateral Screening Mammogram, [facility]. 05/05/2020 Left Diagnostic Mammogram, [facility]. Tissue Density: The breasts are heterogeneously dense, which may obscure small masses. Findings: Analyzed By CAD. There is no suspicious group of microcalcifications or new suspicious mass in either breast. Overall Assessment: Benign, BI-RAD 2 Management: Screening Mammogram of both breasts in 1 year. Given the patient's dense breast tissue, recommend subsequent screening with 3-D mammograms. Consideration can be given to supplementary screening with breast ultrasound. Patient should continue monthly self-breast exams. A clinical breast exam by your physician is recommended on an annual basis. This exam should not preclude additional follow-up of suspicious palpable abnormalities. Note on Yesenia scores and lifetime risk: 1. A Yesenia score greater than 3% is considered moderate risk. If this is the case, consider specialist referral to assess eligibility for a risk reducing agent. 2. If overall lifetime risk for the development of breast cancer is 20% or higher, the patient may qualify for future screening with alternating mammogram and breast MRI. [facility], , 03/06/2024 2:32 PM. Electronically signed and approved by: Yoni Gamino M.D. Radiologist
== END | disposition home or self-care (01) ==
LOC: RADMAMWWP 07:14
PROVIDERS: ATTEND Obstetrics & Gynecology
CPT/HCPCS: 77067

== ENCOUNTER → 2024-07-01 | Outpatient (CLI) | payer BC ==
[2024-07-01 14:10] LABS: Basophils # (A) 0.08 X 10*3/uL (0.00-0.10); Eosinophils % (A) 2.6 %; HCT 35.5 % (37.2-46.3); HGB 11.3 g/dL (12.0-15.0); Lymphocytes # (A) 1.63 X 10*3/uL (0.90-5.00); Lymphocytes % (A) 21.3 %; MCH 28.8 pg (27.0-32.0); MCHC 31.8 g/dL (32.0-37.0); MCV 90.6 FL (80.0-97.0); Mean Platelet Volume 12.1 FL (9.5-12.2); Monocytes # (A) 0.34 X 10*3/uL (0.20-1.00); Monocytes % (A) 4.5 %; NRBC Per 100 WBC 0 X 10*3/uL (0.00-0.01); Neutrophils # (A) 5.37 X 10*3/uL (1.80-7.70); Neutrophils % (A) 70.3 %; Platelet Count 241 X 10*3/uL (140-440); RBC 3.92 X 10*6/uL (4.10-5.20); WBC 7.64 X 10*3/uL (4.50-10.00)
== END | disposition home or self-care (01) ==
LOC: LABPAT 07:30
PROVIDERS: ATTEND Obstetrics & Gynecology
DX: Z01.812 Encounter for preprocedural laboratory examination (principal); N92.0 Excessive and frequent menstruation with regular cycle
CPT/HCPCS: 85025

== ENCOUNTER → 2024-07-03 | Day surgery (SDC) | payer BC ==
[2024-06-30 12:59] VITALS: BMI 23.3
[~2024-07-03] MED LIST: ACETAMINOPHEN TAB 325 MG TAB PO PRN; HYDROmorphone 0.5 MG/0.5 ML SYRINGE IVP PRN; IBUPROFEN 600 MG TAB PO PRN; LACTATED RINGERS 1,000 ML IV SCH; LIDOCAINE 1% (10MG/ML) FOR IV START INTRADERMA PRN; LIDOCAINE 1% INJ 10MG/ML (20 ML MDV) ONE; METOCLOPRAMIDE 5 MG/ML 2 ML VIAL IVP PRN; MIDAZOLAM 2 MG/2 ML VIAL ONE; ONDANSETRON 4 MG/2 ML VIAL IVP PRN; PROPOFOL 10 MG/ML 20 ML VIAL IV ONE; Pre Op ABX Message 1 EACH MISC MISCELLANE ONE; SIMETHICONE 80 MG CHEWABLE PO PRN; diphenhydrAMINE 25 MG CAP PO PRN; diphenhydrAMINE 50 MG/ML 1 ML VIAL IVP PRN; fentaNYL (PF) 50 MCG/ML 2 ML AMP IVP PRN; fentaNYL (PF) 50 MCG/ML 2 ML AMP ONE
--- NOTE | 2024-07-03 00:14 | HP ---
HISTORY AND PHYSICAL DATE OF SURGERY: 07/03/2024. HISTORY OF PRESENT ILLNESS: The patient is a 43-year-old 5, para 3-1-1-3, who presents to the office with complaints of significantly heavy menses. She passes large clots and occasionally bleeds through her protection. She has requested definitive treatment with endometrial ablation as her has a vasectomy in place and is otherwise unwilling to undergo hormonal manipulation. She is aware of other potential options. PAST MEDICAL HISTORY: Significant for episodes of supraventricular tachycardia. PAST SURGICAL HISTORY: None. OBSTETRICAL HISTORY: 5, para 3-1-1-3 with 3 term vaginal deliveries and 1 delivery in which the did not survive. Method of contraception is vasectomy. GYNECOLOGIC HISTORY: Unremarkable with no history of any infections to include STDs. FAMILY HISTORY: Noncontributory. 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 She is a nonsmoker and denies any other significant social concerns. CURRENT MEDICATIONS: None. ALLERGIES: No known drug allergies. REVIEW OF SYSTEMS: Confined to history of present illness. PHYSICAL EXAMINATION: VITAL SIGNS: Stable. The patient is afebrile. GENERAL: This is a well-developed, well-nourished white female, in no acute distress. HEART: Has a regular rhythm and rate without murmur. LUNGS: Clear to auscultation bilaterally in all cruz. ABDOMEN: Nondistended, has normoactive bowel sounds, soft, nontender, without any palpable, hepatosplenomegaly, or hernias. EXTREMITIES: Without any cyanosis, clubbing, or edema and are nontender to palpation. PELVIC: Demonstrates normal external genitalia and BUS with normal vaginal mucosa and cervix. There is no cervical motion tenderness. Uterus is approximately 4 to 5 weeks in size, retroverted, mobile, nontender, normal in shape. The adnexa are normal and nontender without mass bilaterally. Endometrial biopsy was performed and results were benign in nature. The uterus sounded to approximately 9 cm. ASSESSMENT AND PLAN: Menorrhagia: We have discussed options for treatment and the patient has requested to proceed with diagnostic hysteroscopy, possible endometrial polypectomy as ultrasound may have demonstrated what might be a polyp and then followed by NovaSure endometrial ablation. The risks and complications of the procedures have been thoroughly discussed including the risks for bleeding, bleeding requiring transfusion, infection, injury to local structures to include bleeding, transfusion, infection, and injury to local structures, specifically uterine perforation and subsequent Asherman syndrome and then possibly hematometra. She has understood all of these concerns and has agreed to proceed. MMODL / IJN: [id number] /
[2024-07-03] MEDS: LACTATED RINGERS 1,000 ML IV SCH (09:42)
[2024-07-03] MEDS: IV FLUID CONTINUATION 1,000 ML IV ONE (09:42)
[2024-07-03] MEDS: ONDANSETRON 4 MG/2 ML VIAL IVP ONE (09:45)
[2024-07-03] MEDS: DEXAMETHASONE SOD PHOSPHATE 4 MG/ML 1 ML VIAL IV ONE (09:45)
[2024-07-03] MEDS: MIDAZOLAM 2 MG/2 ML VIAL IV PRN (09:54)
--- NOTE | 2024-07-03 10:58 | P.OP ---
Date of Procedure: 07/03/24 Preoperative Diagnosis: #1. Menorrhagia #2. Possible endometrial polyp Postoperative Diagnosis: Same Procedure(s) Performed: #1. Diagnostic hysteroscopy #2. Dilation and curettage #3. NovaSure endometrial ablation Anesthesia: other (General By LMA) Surgeon: Feng Taylor Estimated Blood Loss (ml): 5 IV fluids (ml): 400 Urine output (ml): 30 Pathology: other (Endometrial curettings) Condition: stable Disposition: PACU Operative Findings: Preoperative pelvic examination demonstrated a 4 to 5-week retroverted mobile normal shaped uterus with normal adnexa bilaterally. Intraoperatively, the uterus sounded to approximately 8 cm with a cervical length of approximately 3 cm. Using the hysteroscope, there was a moderate to significant amount of shaggy tissue throughout the entire cavity which was removed during curettage and sent for pathological diagnoses. The bilateral tubal ostia were seen. The settings for the NovaSure tool were a length of 5 cm, a width of 4.3 cm for a total power of 118 W. After a total run time of 45 seconds, the base unit read "procedure complete." The postprocedural result appeared to be excellent. The patient is a reasonable candidate for vaginal hysterectomy should it become nece ssary in the future. Description of Procedure: The patient was prepped and draped in usual fashion after general anesthesia was administered by the anesthesiologist. A weighted speculum was placed and the bladder drained of approximately 30 cc of clear demetria urine. The anterior lip of the cervix was grasped with single-tooth tenaculum and the uterus sounded to 8 cm as noted above with a cervical length of 3 cm. Serial dilation was carried out to admit the diagnostic hysteroscope which was placed into the endometrial cavity and the cavity distended with normal saline. The findings are as noted above with the bilateral tubal ostia seen but a significant amount of shaggy tissue was noted throughout the entire cavity. As a result, a Telfa was placed in the vagina and a medium sharp curette inserted into the cavity and then utilized to thoroughly and circumferentially performed curettage of the endometrial cavity tissue onto the Telfa in the vagina. The tissue was sent for pathological diagnoses. After adequate curettage been carried out with the typical gritty texture encountered throughout, the sharp curette was set aside and the NovaSure tool placed into the endometrial cavity, opened, and seated well. The settings for the tool were a length of 5.0 cm, a width of 4.3 cm for a total power of 118 W. The cavity check was attempted and passed without difficulty. The tool was enabled and the run was started. After a total run time of 45 seconds, the base unit read "procedure complete." The tool was closed, removed, and discarded. The diagnostic hysteroscope was replaced within the cavity and there appeared to be an excellent result though the visualization was not ideal as there was some cloudiness to the saline in the cavity. All instrumentation was removed. Small point of bleeding from one of the tenaculum sites was made hemostatic with pressure. Estimated blood loss for the case was approximately 5 mL or less. There were no complications. All sponge, instrument, and needle counts were correct. The patient tolerated the procedure well and proceeded to the recovery room in stable condition.
[2024-07-03 11:02] VITALS: TEMP 97
[2024-07-03 11:16] VITALS: RESP 16
[2024-07-03] MEDS: KETOROLAC 15 MG/ML 1 ML VIAL IVP PRN (11:41)
[2024-07-03 12:04] VITALS: BP 131/77; PULSE 72
== END | disposition home or self-care (01) ==
LOC: OR 08:55
PROVIDERS: ATTEND Obstetrics & Gynecology
DX: N92.0 Excessive and frequent menstruation with regular cycle (principal); F41.9 Anxiety disorder, unspecified; F32.A Depression, unspecified; K21.9 Gastro-esophageal reflux disease without esophagitis; F17.290 Nicotine dependence, other tobacco product, uncomplicated; Z86.718 Personal history of other venous thrombosis and embolism; Z79.899 Other long term (current) drug therapy
CPT/HCPCS: 58563; 81025; 88305; J2250; J1100; J2405; J2003; J3010; J1885; J2704